=== PATIENT | male | born 1965 ===

== ENCOUNTER 2016-10-20 01:39 | Emergency (ER) | payer OTHER ==
[2016-10-20 04:04] LABS: RBC URINE 65 /hpf (0-3); URINE BACTERIA MANY (<OCC); URINE BILIRUBIN NEGATIVE (NEGATIVE); URINE BLOOD 2+ (NEGATIVE); URINE CALCIUM OXALATE CRYSTALS FEW /hpf (<OCC); URINE COLOR Yellow (YELLOW); URINE GLUCOSE (UA) NORMAL (Normal); URINE KETONE TRACE mg/dL (NEGATIVE); URINE LEUKOCYTE ESTERASE 3+ Leu/uL (Negative); URINE PROTEIN 2+ mg/dL (NEGATIVE); URINE UROBILINOGEN NORMAL mg/dL (0.2-1.0); WBC URINE 770 /hpf (0-5)
--- NOTE | 2016-10-20 04:56 | C.PDOC ---
History Of Present Illness Patient seen this morning due to painful urination for few days. Has seen urologist last monday. Time Seen by Provider: 10/20/16 04:56 Chief Complaint (Nursing): Male Genitourinary History Per: Patient History/Exam Limitations: no limitations Onset/Duration Of Symptoms: Days Current Symptoms Are (Timing): Still Present Severity: Moderate Pain Scale Rating Of: 5 Quality Of Discomfort: Burning Associated Symptoms: denies: Fever, Chills, Nausea, Vomiting Alleviating Factors: None Recent travel outside of the [place]: No Additional History Per: Patient Past Medical History Vital Signs: Last Vital Signs Temp 97.3 F L 10/20/16 02:40 Pulse 68 10/20/16 02:40 Resp 20 10/20/16 02:40 BP 167/99 H 10/20/16 02:40 Pulse Ox 95 10/20/16 05:08 - Medical History PMH: No Chronic Diseases Surgical History: No Surg Hx Family History: States: Unknown Family Hx - Social History Hx Alcohol Use: Yes Hx Substance Use: No - Immunization History Hx Tetanus Toxoid Vaccination: No Hx Influenza Vaccination: No Hx Pneumococcal Vaccination: No Review Of Systems Constitutional: Negative for: Fever, Chills, Sweats Cardiovascular: Negative for: Chest Pain, Palpitations, Orthopnea, Paroxysmal Noc. Dyspnea Respiratory: Negative for: Cough, Shortness of Breath, Hemoptysis Gastrointestinal: Negative for: Nausea, Vomiting, Abdominal Pain, Diarrhea Genitourinary: Positive for: Dysuria, Frequency, Penile Pain. Negative for: Hematuria, Penile Discharge Musculoskeletal: Negative for: Neck Pain, Shoulder Pain, Arm Pain Skin: Negative for: Rash Neurological: Negative for: Weakness, Numbness, Incoordination Physical Exam - Physical Exam Appears: Well, No Acute Distress Skin: Normal Color, Warm, Dry Eye(s): bilateral: Normal Inspection, PERRL, EOMI Nose: Normal Throat: Normal Neck: Normal Cardiovascular: Rhythm Regular Respiratory: Normal Breath Sounds Gastrointestinal/Abdominal: Normal Exam, Soft, No Tenderness, No Distention, No Guarding Back: Normal Inspection, No CVA Tenderness, No Vertebral Tenderness Male Genital: No Testicular Tenderness, No Testicular Swelling, No Inguinal Tenderness, No Inguinal Swelling, No Scrotal Swelling, Other (soft tissue swwelling of penile area, no disscharge) ED Course And Treatment - Laboratory Results Result Diagrams: 10/20/16 05:42 10/20/16 05:42 O2 Sat by Pulse Oximetry: 95 Disposition Counseled Patient/Family Regarding: Diagnosis - Disposition Referrals: [facility] [Outside] Papi Thomas Jr., MD [Staff Provider] - Disposition Time: 06:28 Condition: STABLE Prescriptions: Sulfamethoxazole/Trimethoprim [Bactrim DS 800 mg-160 mg] 1 tab PO BID #14 tab Phenazopyridine HCl [Pyridium] 200 mg PO TID #20 tablet Instructions: Urinary Tract Infection in Men (ED) - POA Present On Arrival: None - Clinical Impression Clinical Impression: UTI (urinary tract infection)
[2016-10-20 05:45] LABS: BASO # 0.1 K/uL (0.0-0.2); BASO % 0.7 % (0.0-2.0); EOS # 0.1 K/uL (0.0-0.7); EOS % 1.4 % (0.0-4.0); HEMATOCRIT 40.6 % (35.0-51.0); LYMPH # 1.3 K/uL (1.0-4.3); LYMPH % 14.1 % (20.0-40.0); MEAN CELL VOLUME 89.4 fL (80.0-94.0); MEAN CORPUSCULAR HEMOGLOBIN 30.6 pg (27.0-31.0); MEAN CORPUSCULAR HGB CONC 34.3 g/dL (33.0-37.0); MEAN PLATELET VOLUME 8.2 fL (7.2-11.7); MONO # 0.9 K/uL (0.0-0.8); MONO % 9.3 % (0.0-10.0); RED CELL DISTRIBUTION WIDTH 12.6 % (11.5-14.5); WHITE BLOOD COUNT 9.5 K/uL (4.8-10.8)
[2016-10-20 05:54] LABS: CHLORIDE 103 mmol/L (98-107); POTASSIUM 4.1 mmol/L (3.6-5.2); SODIUM 138 mmol/L (132-148)
[2016-10-20 05:56] LABS: GFR AFRICAN-AMERICAN > 60
[2016-10-20 05:57] LABS: ALKALINE PHOSPHATASE 124 U/L (38-126); ALT/SGPT 35 U/L (21-72); AST/SGOT 22 U/L (17-59); BILIRUBIN,TOTAL 0.7 mg/dL (0.2-1.3); BLOOD UREA NITROGEN 16 mg/dL (9-20); CALCIUM 8.6 mg/dl (8.6-10.4); CARBON DIOXIDE 23 mmol/L (22-30); GLUCOSE,RANDOM 103 mg/dL (75-110); TOTAL PROTEIN 7.2 g/dL (6.3-8.3)
[2016-10-20] MEDS ORDERED: Tmp-Smz 800 mg-160 mg DS Tab PO STA (06:31)
[2016-10-20 06:49] VITALS: BP 133/77; PULSE 77; RESP 16; TEMP 98.3; O2SAT 98
[2016-10-20] MEDS ORDERED: Tmp-Smz 800 mg-160 mg DS Tab ONE (06:52)
== END 2016-10-20 06:57 | disposition home or self-care (01) ==
LOC: C.ER 01:39
DX: N39.0 Urinary tract infection, site not specified (principal)
CPT/HCPCS: 80053; 81001; 85025; 87086; 96372; 99283; J1885

== ENCOUNTER 2016-10-29 22:29 | Emergency (ER) | payer OTHER ==
[2016-10-29] MEDS ORDERED: Sodium Chloride 0.9% 1,000 ML IV ONE (23:32)
[2016-10-29 23:41] LABS: VENOUS BLOOD GAS BASE EXCESS 0.3 mmol/L (0.0-2.0); VENOUS BLOOD GAS PCO2 33 mmHg (40-60); VENOUS BLOOD PH 7.46 (7.32-7.43)
[2016-10-29] MEDS ORDERED: Sodium Chloride 0.9% 1,000 ML ONE (23:45)
[2016-10-29 23:50] LABS: RBC URINE 10 /hpf (0-3); URINE BACTERIA MANY (<OCC); URINE BILIRUBIN NEGATIVE (NEGATIVE); URINE BLOOD NEGATIVE (NEGATIVE); URINE GLUCOSE (UA) NORMAL (Normal); URINE KETONE NEGATIVE (NEGATIVE); URINE PROTEIN 2+ mg/dL (NEGATIVE); WBC URINE 260 /hpf (0-5)
[2016-10-29 23:51] LABS: URINE COLOR ORANGE (YELLOW); URINE LEUKOCYTE ESTERASE 1+ Leu/uL (Negative)
[2016-10-29 23:55] LABS: BASO % 0.4 % (0.0-2.0); EOS # 0.1 K/uL (0.0-0.7); HEMATOCRIT 38.6 % (35.0-51.0); LYMPH # 0.6 K/uL (1.0-4.3); LYMPH % 10.1 % (20.0-40.0); MEAN CELL VOLUME 88.6 fL (80.0-94.0); MEAN CORPUSCULAR HGB CONC 33.9 g/dL (33.0-37.0); MEAN PLATELET VOLUME 8.5 fL (7.2-11.7); MONO # 0.1 K/uL (0.0-0.8); MONO % 1.2 % (0.0-10.0); NRBC % 0.2 % (0.0-2.0); RED CELL DISTRIBUTION WIDTH 12.5 % (11.5-14.5); WHITE BLOOD COUNT 5.8 K/uL (4.8-10.8)
[2016-10-30 00:15] LABS: INR 1.3
[2016-10-30 00:46] LABS: ALB/GLOB RATIO 1.2 (1.0-2.1); ALKALINE PHOSPHATASE 209 U/L (38-126); ALT/SGPT 112 U/L (21-72); AST/SGOT 150 U/L (17-59); BILIRUBIN,TOTAL 1.2 mg/dL (0.2-1.3); BLOOD UREA NITROGEN 18 mg/dL (9-20); CALCIUM 7.9 mg/dl (8.6-10.4); CARBON DIOXIDE 21 mmol/L (22-30); CHLORIDE 98 mmol/L (98-107); GFR AFRICAN-AMERICAN > 60; GLUCOSE,RANDOM 109 mg/dL (75-110); MAGNESIUM 1.6 mg/dL (1.6-2.3); PHOSPHOROUS 1.9 mg/dL (2.5-4.5); POTASSIUM 4.2 mmol/L (3.6-5.2); SODIUM 133 mmol/L (132-148); TOTAL PROTEIN 6.8 g/dL (6.3-8.3)
[2016-10-30] MEDS ORDERED: Iodixanol 320 MG/ML 100 ML BOTTLE IV ONE (00:52)
--- NOTE | 2016-10-30 01:51 | CT ---
EXAM: CT Abdomen and Pelvis With Intravenous Contrast CLINICAL HISTORY: 51 years old, male; Pain; Abdominal pain; Generalized; Additional info: Dysuria, fever, back pain, R/O pyeloneph TECHNIQUE: Axial computed tomography images of the abdomen and pelvis with intravenous contrast. This CT exam was performed using one or more of the following dose reduction techniques: automated exposure control, adjustment of the mA and/or kV according to patient size, and/or use of iterative reconstruction technique. Coronal and sagittal reformatted images were created and reviewed. CONTRAST: 100 mL of osmn613 administered intravenously. EXAM DATE/TIME: 10/29/2016 11:31 PM COMPARISON: CT - ABD PELVIS IV CONTRAST ONLY 08/06/2015 11:12:07 PM FINDINGS: Small stable left hepatic lobe cyst. The spleen is normal. The pancreas is normal. No gallstones. No hydronephrosis. Trace bilateral stable perinephric stranding. No striated nephrograms. Again seen is a right urinary bladder diverticuli. It measures 1.5 x 2 cm on the current compared to 1.1 x 1.5 cm on the prior. The urinary bladder wall is prominent, at least partially due to incomplete distention. Correlation with urinalysis could be performed to exclude infectious/inflammatory process. Left-sided colonic diverticulosis. The appendix is identified on axial images 43 through 58. It is again seen to be dilated with air and stool measuring 9-10 mm without evidence of wall thickening or surrounding inflammation. IMPRESSION: Increased size of right bladder diverticuli. Prominent urinary bladder wall as discussed above.
[2016-10-30] MEDS ORDERED: Ciprofloxacin 400mg/200ml D5W 200 ML IV STA (02:35)
--- NOTE | 2016-10-30 02:40 | C.PDOC ---
History Of Present Illness <Gayle Shepherd - Last Filed: 10/31/16 22:28> <Candido Abdullahi - Last Filed: 11/01/16 17:03> 51 year old male presents to the ED with complaints of dysuria and associated fever, chills for the last week, and two vomiting episodes yesterday prompting visit to the ED. He notes a history of uretheral stricture surgery "years ago." Patient denies diarrhea, numbness, weakness, or recent travel. (Gayle Shepherd) History Per: Patient History/Exam Limitations: no limitations Onset/Duration Of Symptoms: Days Current Symptoms Are (Timing): Still Present Associated Symptoms: Vomiting. denies: Fever, Chills, Diarrhea <Gayle Shepherd - Last Filed: 10/31/16 22:28> <Candido Abdullahi - Last Filed: 11/01/16 17:03> Time Seen by Provider: 10/29/16 23:19 Chief Complaint (Nursing): Fever Past Medical History Reviewed: Historical Data, Nursing Documentation, Vital Signs Family History: States: Unknown Family Hx - Social History Hx Alcohol Use: Yes Hx Substance Use: No - Immunization History Hx Tetanus Toxoid Vaccination: No Hx Influenza Vaccination: No Hx Pneumococcal Vaccination: No <Gayle Shepherd - Last Filed: 10/31/16 22:28> Vital Signs: Last Vital Signs Temp 98.5 F 10/30/16 05:09 Pulse 98 H 10/30/16 05:09 Resp 18 10/30/16 05:09 BP 102/64 10/30/16 05:09 Pulse Ox 98 10/31/16 22:29 Review Of Systems Constitutional: Positive for: Fever, Chills. Negative for: Sweats Gastrointestinal: Positive for: Vomiting. Negative for: Abdominal Pain, Diarrhea Genitourinary: Positive for: Dysuria Neurological: Negative for: Weakness, Numbness <Gayle Shepherd - Last Filed: 10/31/16 22:28> Physical Exam - Physical Exam Appears: Non-toxic, No Acute Distress Skin: Warm, Dry Head: Atraumatic, Normacephalic Eye(s): bilateral: PERRL, EOMI Ear(s): Bilateral: Normal Oral Mucosa: Dry Throat: Normal, No Erythema Neck: Normal ROM, Supple Cardiovascular: Rhythm Regular, No Friction Rub, No Murmur Respiratory: Normal Breath Sounds, No Accessory Muscle Use, No Rales, No Rhonchi , No Stridor, No Wheezing Gastrointestinal/Abdominal: Soft, No Tenderness, No Distention, No Guarding, No Rebound Back: Normal Inspection, No CVA Tenderness Extremity: Normal ROM, No Tenderness Neurological/Psych: Oriented x3, Normal Speech, Normal Motor Gait: Steady <Gayle Shepherd - Last Filed: 10/31/16 22:28> <Candido Abdullahi - Last Filed: 11/01/16 17:03> - Physical Exam Additional Physical Exam Comments: Mild tremors secondary to fever (Gayle Shepherd) ED Course And Treatment - Laboratory Results Result Diagrams: 10/29/16 23:40 10/30/16 00:05 O2 Sat by Pulse Oximetry: 98 (room air ) Pulse Ox Interpretation: Normal <Gayle Shepherd - Last Filed: 10/31/16 22:28> - Laboratory Results Result Diagrams: 10/29/16 23:40 10/30/16 00:05 <Candido Abdullahi - Last Filed: 11/01/16 17:03> Medical Decision Making <Gayle Shepherd - Last Filed: 10/31/16 22:28> <Candido Abdullahi - Last Filed: 11/01/16 17:03> Medical Decision Making: Old records reviewed, the patient was seen in the ED for similar symptoms on and was discharged home with Bactrim. It is likely that the UTI continues secondary to the possible resistance to the Bactrim. Antibiotic changed to Cipro. NS IVF given. On re-exam, the patient reports improvement of symptoms. Lungs are CTA, heart is RRR, abdomen is soft, non-tender and tolerating PO well. Follow up with the medical doctor within 1-2 days. Return if worsened. (Gayle Shepherd) Disposition - Disposition Disposition Time: 03:49 <Gayle Shepherd - Last Filed: 10/31/16 22:28> <Candido Abdullahi - Last Filed: 11/01/16 17:03> - Disposition Referrals: Papi Thomas Jr., MD [Staff Provider] - Disposition: HOME/ ROUTINE Condition: GOOD Additional Instructions: Follow up with the medical doctor within 1-2 days. Return if worsened. Prescriptions: Ciprofloxacin HCl [Cipro] 500 mg PO BID #19 tab Ibuprofen [Motrin] 600 mg PO TID #21 tab Instructions: Acute Pyelonephritis (DC) - Clinical Impression Clinical Impression: UTI (urinary tract infection), Pyelonephritis - Scribe Statement The provider has reviewed the documentation as recorded by the Scribe <Gayle Shepherd - Last Filed: 10/31/16 22:28> <Candido Abdullahi - Last Filed: 11/01/16 17:03> - Scribe Statement Yue Summers All medical record entries made by the Scribe were at my direction and personally dictated by me. I have reviewed the chart and agree that the record accurately reflects my personal performance of the history, physical exam, medical decision making, and the department course for this patient. I have also personally directed, reviewed, and agree with the discharge instructions and disposition. (Gayle Shepherd) Addendum <Gayle Shepherd - Last Filed: 10/31/16 22:28> <Candido Abdullahi - Last Filed: 11/01/16 17:03> Addendum: 11/01/16 17:00 I received urine culture result today. Shows resistant to cipro which patient was discharged on. Could not reach patient via phone, rings and no voicemail box. Called "person to notify" who gave me a different number but that number was someone else, wrong number. I referred this case to ED director for telegram. (Candido Abdullahi)
[2016-10-30] MEDS ORDERED: Ciprofloxacin 400mg/200ml D5W 200 ML IVPB ONE (02:41)
[2016-10-30 05:09] VITALS: BP 102/64; PULSE 98; RESP 18; TEMP 98.5
--- NOTE | 2016-10-30 07:59 | RAD ---
HISTORY: Sepsis Patient COMPARISON: No prior. FINDINGS: LUNGS: Chronic interstitial lung markings. Upper lobe granulomatous changes. No gross focal infiltrate or effusion. PLEURA: No significant pleural effusion identified, no pneumothorax apparent. CARDIOVASCULAR: Normal. OSSEOUS STRUCTURES: No significant abnormalities. VISUALIZED UPPER ABDOMEN: Normal. OTHER FINDINGS: None. IMPRESSION: No active disease.
[2016-10-31 22:29] VITALS: O2SAT 98
== END 2016-10-30 05:30 | disposition home or self-care (01) ==
LOC: C.ER 22:29
DX: N39.0 Urinary tract infection, site not specified (principal); N12 Tubulo-interstitial nephritis, not specified as acute or chronic
CPT/HCPCS: 71010; 74177; 80053; 81001; 82803; 83735; 84100; 85025; 85610; 85730; 87086; 87181; 96361; 96365; 99285; J0744; J7040; Q9967

== ENCOUNTER 2016-11-22 07:56 | Day surgery (SDC) | payer OTHER ==
[2016-11-07 08:28] VITALS: BMI 27.3
[~2016-11-22 07:56] MED LIST: Gentamicin 160 MG in Sodium Chloride 0.9% 100 ML IVPB ONE
[2016-11-22] MEDS ORDERED: Midazolam 2 MG/2 ML VIAL ONE (08:45)
[2016-11-22] MEDS ORDERED: Propofol 10 mg/ml Inj (20 ML) ONE ×4 (08:45→10:09)
[2016-11-22] MEDS ORDERED: Ciprofloxacin 400mg/200ml D5W 400 MG/200 ML BAG IVPB ONE (09:12)
[2016-11-22] MEDS ORDERED: Lidocaine 2% Jelly (Uro-Jet) ONE ×2 (09:12→09:32)
[2016-11-22] MEDS ORDERED: Iohexol 240 (50 ml) ONE (09:12)
--- NOTE | 2016-11-22 10:22 | PCM.SURG1 ---
Surgeon's Initial Post Op Note - Surgeon's Notes Surgeon: Martha Psychiatry Adult Physician: N/A Type of Anesthesia: General Mask Anesthesia Administered By: staff Pre-Operative Diagnosis: Urethral Stricture Operative Findings: same Post-Operative Diagnosis: same Operation Performed: Cysto/oiu/Ballon dilation Specimen/Specimens Removed: na Estimated Blood Loss: EBL {In ML}: 0 Blood Products Given: N/A Drains Used: No Drains Post-Op Condition: Good Date of Surgery/Procedure: 11/22/16 Time of Surgery/Procedure: 10:22
[2016-11-22] MEDS ORDERED: Lactated Ringer's 1,000 ML IV SCH (10:30)
[2016-11-22 10:59] VITALS: O2SAT 100
[2016-11-22] MEDS ORDERED: HYDROmorphone 0.5 mg/0.5 ml ISec IVP ONE (11:08)
--- NOTE | 2016-11-22 12:25 | OP ---
PROCEDURE DATE: 11/22/2016 PREOPERATIVE DIAGNOSIS: Urethral stricture. POSTOPERATIVE DIAGNOSIS: Urethral stricture. FINDINGS: Mid pendulous urethral stricture and a meatal stricture. PROCEDURE: The patient was draped and prepped in the usual manner after he signed a detailed informe d consent. He is aware of the limitations of this procedure and the possibility of urethral injury a nd recurrent urethral stricture. He was willing to accept these and all the risks, and was brought i [facility] the room, and a time-out was taken according to the rules and regulations of [facility]. Attempt was made to cystoscope the patient with a 21 Storz panendoscope. There was a meatal strictur e. This was dilated with Abdullahi sounds. The scope was then passed into the mid urethra. There wa s a second urethral stricture. This stricture was cannulized with a 0.038 sensor tipped guidewire, a nd a 30-Ukrainian balloon catheter was passed over this. It was dilated appropriately. The scope was b acked out. The residual fibers were cut with the OIU instrument, and then the OIU instrument was pas sed into the posterior urethra. The prostatic urethra was normal with minimal hypertrophy. The blad ryan was entered atraumatically. There were no urothelial tumors or stones. Based on these findings, the patient should void well now. The scope was backed out, leaving the paul dewire in place, and a #18 [place] catheter was passed over the guidewire and positioned properly. The patient tolerated this procedure well. He will be given prescriptions for pain and antibiotics, and will follow up in our office tomorrow for catheter removal. Papi Thomas MD cc: [phone] TT: 11/22/2016 12:24:39 jl
[2016-11-22 12:46] VITALS: BP 131/88; PULSE 61; RESP 18; TEMP 97
--- NOTE | 2016-11-22 17:15 | RAD ---
PROCEDURE: Procedure HISTORY: URETHRAL STRICTURE COMPARISON: None TECHNIQUE: Urethral dilatation FINDINGS: Multiple images showing insertion of a guidewire and subsequent balloon like dilatation of the urethrain this patient with a history of urethral stricture. No extravasation of contrast. IMPRESSION: Images regarding procedural Urethral dilatation.
== END 2016-11-22 12:47 | disposition home or self-care (01) ==
LOC: C.SDS 07:56
PROVIDERS: ATTEND Urology
DX: N35.9 Urethral stricture, unspecified (principal)
CPT/HCPCS: 52281; C1769; J0744; J1170; J1580; Q9966

== ENCOUNTER 2017-09-04 12:24 | Day surgery (SDC) | payer OTHER ==
[2016-11-07 08:26] VITALS: BMI 27.3
[2017-09-04] MEDS ORDERED: Propofol 10 mg/ml Inj (20 ML) ONE (15:33)
[2017-09-04] MEDS ORDERED: ceFAZolin IV 2 gm in Dextrose 2 GM/50 ML BAG IVPB ONE (15:38)
[2017-09-04] MEDS ORDERED: Bupivacaine HCl 0.5% PF (10 ml) Inj ONE (15:38)
[2017-09-04] MEDS ORDERED: Lidocaine 1% Inj (20ml) ONE (15:38)
[2017-09-04] MEDS ORDERED: HYDROmorphone 0.5 mg/0.5 ml ISec IVP PRN (16:32)
--- NOTE | 2017-09-04 16:34 | PCM.SURG1 ---
Surgeon's Initial Post Op Note - Surgeon's Notes Surgeon: SARAH Green Chain Puller: MADDY Type of Anesthesia: General LMA Anesthesia Administered By: STAFF Pre-Operative Diagnosis: PHIMOSIS/BALANITIS Operative Findings: SAME Post-Operative Diagnosis: SAME Operation Performed: CIRCUMCISION Specimen/Specimens Removed: FORESKIN Estimated Blood Loss: EBL {In ML}: 0 Blood Products Given: N/A Drains Used: No Drains Post-Op Condition: Good Date of Surgery/Procedure: 09/04/17 Time of Surgery/Procedure: 16:34
[2017-09-04 17:49] VITALS: BP 130/70; PULSE 81; RESP 18; TEMP 98; O2SAT 100
--- NOTE | 2017-09-05 03:19 | OP ---
PROCEDURE DATE: 09/04/2017 PREOPERATIVE DIAGNOSIS: Phimosis and balanitis. POSTOPERATIVE DIAGNOSIS: Phimosis and balanitis. PROCEDURE: Circumcision. DESCRIPTION OF PROCEDURE: The procedure is as follows. Prior to the procedure, detailed informed consent was obtained from the patient . He was aware of the risk and complications of circumcision and all the ways of managing phimosis with balanitis. The patient consented to these risks and agreed to proceed with the procedure. He was brought into the room and a timeout was taken according to rules and regulations of [facility]. Patient received prophylactic Ancef and then was draped and prepped in usual manner. The foreskin was prepped and draped in the usual manner. It could not be retracted. Once the patient was asleep, it was forcibly retracted, and the interior was draped and prepped. It was pulled down again, and the area of incision was marked on both interior and exterior of the foreskin. There was significant amount of inflammation. The knife was used to make a circumferential incision in the marked area and care was taken to fashion the incision around the frenulum. The skin was then pulled back and a second incision was made just proximal to the glans penis and the frenulum was incised. The two incisions were then connected using blunt and sharp dissection in the Bovie, thereby amputating the foreskin in a Sleeve fashion. The cut edges were inspected for bleeding of all bleeding vessels that were fulgurated until meticulous hemostasis was achieved. 3-0 Chromic suture was used to reconstitute the skin in a circumferential fashion. U-stitch was used for the frenulum. The patient tolerated the procedure well. A circumferential anesthetizing of the skin was carried out with Marcaine, Xylocaine solution, and a dry sterile dressing was placed. The patient tolerated this procedure well and sent to the recovery room in good condition. Papi Thomas MD
== END 2017-09-04 17:53 | disposition home or self-care (01) ==
LOC: C.SDS 12:24
PROVIDERS: ATTEND Urology
DX: N47.1 Phimosis (principal); N48.1 Balanitis; F17.200 Nicotine dependence, unspecified, uncomplicated
CPT/HCPCS: 54161; 88304; J0690; J1885; J2405; J2704; J3010

== ENCOUNTER 2018-01-16 12:53 | Inpatient (IN) | payer MEDICAID, OTHER ==
[2018-01-16 13:08] VITALS: BMI 28.5
[2018-01-16] MEDS ORDERED: Sodium Chloride 0.9% 1,000 ML IV STA (14:22)
[2018-01-16] MEDS ORDERED: Sodium Chloride 0.9% 1,000 ML ONE (14:37)
[2018-01-16 14:53] LABS: BASO # 0.1 K/uL (0.0-0.2); BASO % 0.5 % (0.0-2.0); EOS # 0.2 K/uL (0.0-0.7); EOS % 1.2 % (0.0-4.0); HEMOGLOBIN 12.6 g/dL (12.0-18.0); LYMPH # 1.1 K/uL (1.0-4.3); LYMPH % 7.3 % (20.0-40.0); MEAN CELL VOLUME 83.5 fL (80.0-94.0); MEAN CORPUSCULAR HEMOGLOBIN 28.6 pg (27.0-31.0); MEAN CORPUSCULAR HGB CONC 34.3 g/dL (33.0-37.0); MEAN PLATELET VOLUME 7.8 fL (7.2-11.7); MONO # 1.1 K/uL (0.0-0.8); PLATELET COUNT 351 K/uL (130-400); RBC 4.41 Mil/uL (4.40-5.90); WHITE BLOOD COUNT 15.4 K/uL (4.8-10.8)
[2018-01-16 15:03] LABS: VENOUS BLOOD GAS BASE EXCESS 1.1 mmol/L (0.0-2.0); VENOUS BLOOD GAS PCO2 37 mmHg (40-60); VENOUS BLOOD GAS PO2 33 mm/Hg (30-55); VENOUS BLOOD PH 7.44 (7.32-7.43)
[2018-01-16 15:11] LABS: ALB/GLOB RATIO 1.1 (1.0-2.1); ALT/SGPT 27 U/L (21-72); AST/SGOT 25 U/L (17-59); BLOOD UREA NITROGEN 13 mg/dL (9-20); CALCIUM 8.8 mg/dl (8.6-10.4); GFR AFRICAN-AMERICAN > 60; GFR NON-AFRICAN AMERICAN > 60
[2018-01-16 15:35] LABS: EOSINOPHIL 2 % (0-4); LYMPHOCYTE 8 % (20-40); MONOCYTE 7 % (0-10); NEUTROPHIL 83 % (50-75); PLATELET ESTIMATE NORMAL (NORMAL); TOTAL CELLS COUNTED 100
[2018-01-16 15:58] LABS: SQUAMOUS EPITHIAL 1 /hpf (0-5); URINE BACTERIA OCC (<OCC); URINE BILIRUBIN NEGATIVE (NEGATIVE); URINE BLOOD NEGATIVE (NEGATIVE); URINE CLARITY Hazy (Clear); URINE COLOR Yellow (YELLOW); URINE GLUCOSE (UA) NORMAL (Normal); URINE LEUKOCYTE ESTERASE 2+ Leu/uL (Negative); URINE PROTEIN NEGATIVE (NEGATIVE); URINE UROBILINOGEN NORMAL mg/dL (0.2-1.0)
[2018-01-16] MEDS ORDERED: Piperacillin/Tazobact 3.375 gm 100 ML IVPB STA (16:11)
--- NOTE | 2018-01-16 16:16 | C.PDOC ---
Time Seen by Provider: 01/16/18 14:04 Chief Complaint (Nursing): Male Genitourinary History Per: Patient Onset/Duration Of Symptoms: Days Current Symptoms Are (Timing): Still Present Severity: Moderate Quality Of Discomfort: Unable To Describe Associated Symptoms: Fever, Urinary Symptoms Alleviating Factors: None Additional History Per: Prior Records Past Medical History Reviewed: Historical Data, Nursing Documentation, Vital Signs Vital Signs: Last Vital Signs Temp 103 F H 01/16/18 13:08 Pulse 115 H 01/16/18 13:08 Resp 20 01/16/18 13:08 BP 119/75 01/16/18 13:08 Pulse Ox 98 01/16/18 13:08 - Medical History PMH: Fractures (CLAVICLE/CHILDHOOD) Other PMH: Urethral stricture Surgical History: No Surg Hx Family History: States: Unknown Family Hx - Social History Hx Alcohol Use: Yes Hx Substance Use: No - Immunization History Hx Tetanus Toxoid Vaccination: No Hx Influenza Vaccination: No Hx Pneumococcal Vaccination: No Review Of Systems Except As Marked, All Systems Reviewed And Found Negative. Constitutional: Positive for: Fever, Chills, Malaise Cardiovascular: Negative for: Chest Pain Respiratory: Negative for: Shortness of Breath Gastrointestinal: Negative for: Vomiting, Abdominal Pain, Diarrhea Genitourinary: Positive for: Dysuria, Other (Pt decribes pain in his perineum) Musculoskeletal: Negative for: Neck Pain, Back Pain Neurological: Negative for: Weakness, Numbness Physical Exam - Physical Exam Appears: Non-toxic, No Acute Distress Skin: Normal Color, Warm, Dry Head: Atraumatic, Normacephalic Eye(s): bilateral: PERRL, EOMI Neck: Normal ROM, Supple Cardiovascular: Rhythm Regular Respiratory: Normal Breath Sounds, No Accessory Muscle Use Gastrointestinal/Abdominal: Soft, No Tenderness Back: No CVA Tenderness Male Genital: No Testicular Tenderness, No Testicular Swelling, Circumcised Extremity: Normal ROM Neurological/Psych: Oriented x3, Normal Motor, Normal Sensation ED Course And Treatment - Laboratory Results Result Diagrams: 01/16/18 14:48 01/16/18 14:48 Lab Interpretation: Abnormal Interpretation Of Abnormal: UTI. Leukocytosis with left shift. O2 Sat by Pulse Oximetry: 98 Pulse Ox Interpretation: Normal - Radiology CXR: Interpreted by Me, Viewed By Me CXR Interpretation: Yes: No Acute Disease Progress - Interventions Interventions:: Observation, Intravenous fluid - Medications Administered Intravenous: Other (Abx) - Data Reviewed Data Reviewed: Lab, Diagnostic imaging, Old records - Patient Status Patient status: Partially improved - Continuity of Care Discussed patient case with:: Patient, ED Nurse, On-call PMD-pt unassigned - Patient Plan Patient Plan: Admission Medical Decision Making Medical Decision Making: Pt's last urine culture grew E. Coli that was ESBL positive. Disposition Discussed With : Nasra Dangelo Comment: She accepted pt on hospitalist service. Doctor Will See Patient In The: Hospital Counseled Patient/Family Regarding: Studies Performed, Diagnosis - Disposition Disposition: HOSPITALIZED Disposition Time: 16:17 Condition: GUARDED - Clinical Impression Clinical Impression: Complicated urinary tract infection, Sepsis, Fever
--- NOTE | 2018-01-16 16:35 | RAD ---
HISTORY: Fever. COMPARISON: 11/07/2016 FINDINGS: LUNGS: No active pulmonary disease. PLEURA: No significant pleural effusion identified, no pneumothorax apparent. CARDIOVASCULAR: No radiographic findings to suggest acute or significant cardiovascular disease. OSSEOUS STRUCTURES: No significant abnormalities. VISUALIZED UPPER ABDOMEN: Normal. OTHER FINDINGS: None. IMPRESSION: No active disease.
[2018-01-16] MEDS ORDERED: Meropenem 1 GM in Sodium Chloride 0.9% 100 ML IVPB ONE (17:19)
[2018-01-16] MEDS ORDERED: Piperacillin/Tazobact 3.375 gm 100 ML IVPB ONE (17:23)
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
[2018-01-16] MEDS ORDERED: Enoxaparin 40 mg Syringe ONE (19:32)
[2018-01-16] MEDS: Enoxaparin 40 mg Syringe SC SCH (19:35)
[2018-01-17 06:17] LABS: BASO # 0.1 K/uL (0.0-0.2); BASO % 0.9 % (0.0-2.0); EOS # 0.6 K/uL (0.0-0.7); EOS % 7.9 % (0.0-4.0); HEMOGLOBIN 12.4 g/dL (12.0-18.0); LYMPH % 38.2 % (20.0-40.0); MEAN CELL VOLUME 84.2 fL (80.0-94.0); MEAN CORPUSCULAR HEMOGLOBIN 28.5 pg (27.0-31.0); MEAN CORPUSCULAR HGB CONC 33.8 g/dL (33.0-37.0); MEAN PLATELET VOLUME 8.1 fL (7.2-11.7); MONO % 12.4 % (0.0-10.0); NEUT # 3.2 K/uL (1.8-7.0); NEUT % 40.6 % (50.0-75.0); RBC 4.35 Mil/uL (4.40-5.90); RED CELL DISTRIBUTION WIDTH 12.7 % (11.5-14.5); WHITE BLOOD COUNT 7.8 K/uL (4.8-10.8)
[2018-01-17 06:34] LABS: ALBUMIN 3.6 g/dL (3.5-5.0); ALT/SGPT 27 U/L (21-72); AST/SGOT 25 U/L (17-59); BLOOD UREA NITROGEN 11 mg/dL (9-20); CALCIUM 8.7 mg/dl (8.6-10.4); GFR AFRICAN-AMERICAN > 60; GFR NON-AFRICAN AMERICAN > 60
[2018-01-17] MEDS: Enoxaparin 40 mg Syringe SC SCH (10:02)
--- NOTE | 2018-01-17 10:43 | CP.PCM.PN ---
Subjective - Date & Time of Evaluation Date of Evaluation: 01/17/18 Time of Evaluation: 07:00 - Subjective Subjective: PGY2- Progress Note for Dr. De Santiago Patient seen and examined at bedside and in no acute distress. Patient says he is feeling much better. Patient says he still has burning and pain with urination and his urine is slightly darker than normal. Patient denies any fevers, headache, shortness of breath, abdominal pain, nausea, vomiting, constipation, or diarrhea. Objective - Vital Signs/Intake and Output Vital Signs (last 24 hours): Temp Pulse Resp BP Pulse Ox 97.7 F 58 L 20 131/82 96 01/17/18 08:08 01/17/18 08:08 01/17/18 08:08 01/17/18 08:08 01/17/18 08:08 Intake and Output: 01/17/18 01/17/18 06:59 18:59 Intake Total 240 Balance 240 - Medications Medications: Current Medications Acetaminophen (Tylenol 325mg Tab) 650 mg PO Q6 PRN PRN Reason: Fever >100.4 F Enoxaparin Sodium (Lovenox) 40 mg SC DAILY [facility] Last Admin: 01/16/18 19:35 Dose: 40 mg Pneumococcal Polyvalent Vaccine (Pneumovax 23 Vaccine) 0.5 ml SC .ONCE ONE Stop: 01/19/18 10:01 - Labs Labs: 01/17/18 06:09 01/17/18 06:09 - Additional Findings Additional findings: - Constitutional Appears: Non-toxic, No Acute Distress - Head Exam Head Exam: ATRAUMATIC, NORMOCEPHALIC - Eye Exam Eye Exam: EOMI - ENT Exam ENT Exam: Mucous Membranes Moist - Respiratory Exam Respiratory Exam: Clear to Auscultation Bilateral, NORMAL BREATHING PATTERN - Cardiovascular Exam Cardiovascular Exam: +S1, +S2 - GI/Abdominal Exam GI & Abdominal Exam: Normal Bowel Sounds, Soft. absent: Tenderness - Exam Exam: Circumcision, Scrotal Swelling, Testicular Tenderness (right testicle) . absent: Uretheral Discharge - Extremities Exam Extremities exam: Positive for: normal inspection. Negative for: pedal edema - Back Exam Back exam: NORMAL INSPECTION. absent: CVA tenderness (L), CVA tenderness (R) - Neurological Exam Neurological exam: Alert - Psychiatric Exam Psychiatric exam: Normal Affect - Skin Skin Exam: Warm Assessment and Plan - Assessment and Plan (Free Text) Assessment: Urinary Tract infection patient has failed outpatient PO antibiotics call placed to patient's urologist, Dr. Thomas- does not need consult at this time patient has history ESBL UTI in 10/2016 no CVA tenderness/ flank pain renal/ urinary bladder ultrasound: mild fullness versus mild hydronephrosis of the left renal collecting system 3.1 cm right sided urinary bladder diverticulum noted. 225cc postvoid residual in the urinary bladder which may represent a bladder outlet obstruction. Thickening of the urinary bladder wall which may represent an underlying cystitis. leukocytosis 15.4 on admission, Tmax 103, HR 115, lactate 0.9 urine culture and blood culture collected patient given one dose zosyn in ER patient given one dose meropenem on 01/17, ID restricted drug continue Meropenem 500mg ivpb q8h Florastor 250mg po BID -ID, Dr. Robles consulted, help appreciated tylenol 650mg prn fever Testicular swelling no hernia appreciated on examination testicular ultrasound: diffuse heterogeneous echotexture in the right testicle with normal flow. findings could be related to nonspecific infection/ inflammation. no evidence for mass or torsion, 4mm simple cyst in the head of the right epididymis, normal sonographic appearance of the left testicle and epididymis with normal flow Prophylactic measure SCDs no GI prophylaxis indicated at this time ESBL contact precaution
--- NOTE | 2018-01-17 11:09 | US ---
HISTORY: testicular swelling, pain TECHNIQUE: Realtime sonography through the scrotum with color and doppler flow. COMPARISON: None Available. FINDINGS: RIGHT TESTICLE: Measures 4.2 x 1.7 x 2.9 cm. There is diffuse heterogeneous echotexture with normal flow. RIGHT EPIDIDYMIS: Epididymal head measures 0.9 x 0.7 x 0.8 cm. There is a 4 mm cyst in the tail of the epididymis, otherwise grossly normal with normal flow. LEFT TESTICLE: Measures 3.7 x 1.6 x 2.7 cm. There is homogeneous echotexture with normal flow. LEFT EPIDIDYMIS: Epididymal head measures 0.8 x 1.1 x 1.3 cm. Grossly unremarkable appearance with normal flow. HYDROCELE: None. VARICOCELE: None. OTHER FINDINGS: None. IMPRESSION: 1. Diffuse heterogeneous echotexture in the right testicle with normal flow. Findings could be related to nonspecific infection/ inflammation. No evidence for mass or torsion. 2. 4 mm simple cyst in the head of the right epididymis. 3. Normal sonographic appearance of the left testicle and epididymis with normal flow.
--- NOTE | 2018-01-17 13:03 | US ---
Renal and urinary bladder ultrasound History: Hydronephrosis. Comparison: None available. Technique: Real-time sonography was performed through the kidneys and urinary bladder. Findings: Right kidney: 10.3 x 4.7 x 5.1 centimeters. No calculi or hydronephrosis. Left Kidney: 10.5 x 6.2 x 5.2 centimeters. No gross calculi. Mild fullness versus mild hydronephrosis of the left renal collecting system. Visualized aorta is preserved. Evaluation of the urinary bladder demonstrates a right-sided urinary bladder diverticulum measuring 3.1 x 2.6 x 2.2 centimeters. Prevoid bladder volume of 411 cc. Postvoid residual of 225 cc. Heterogeneous and prominent prostate with internal calcifications measuring 4.8 x 3.9 x 4.6 centimeters. Suggestion of some mild urinary bladder wall thickening. No gross bladder calculi. Bilateral ureteral jets were visualized. Impression: Mild fullness versus mild hydronephrosis of the left renal collecting system. 3.1 centimeter right-sided urinary bladder diverticulum noted. 225 cc postvoid residual in the urinary bladder which may represent a bladder outlet obstruction. Clinical correlation. Thickening of the urinary bladder wall which may represent an underlying cystitis. Clinical correlation.
--- NOTE | 2018-01-17 14:33 | CP.PCM.PN ---
Subjective - Date & Time of Evaluation Date of Evaluation: 01/17/18 Time of Evaluation: 02:15 Objective - Vital Signs/Intake and Output Vital Signs (last 24 hours): Temp Pulse Resp BP Pulse Ox 97.7 F 58 L 20 131/82 96 01/17/18 08:08 01/17/18 08:08 01/17/18 08:08 01/17/18 08:08 01/17/18 08:08 Intake and Output: 01/17/18 01/17/18 06:59 18:59 Intake Total 240 Balance 240 - Medications Medications: Current Medications Acetaminophen (Tylenol 325mg Tab) 650 mg PO Q6 PRN PRN Reason: Fever >100.4 F Enoxaparin Sodium (Lovenox) 40 mg SC DAILY [facility] Last Admin: 01/17/18 10:02 Dose: 40 mg Meropenem 500 mg/ Sodium (Chloride) 100 mls @ 100 mls/hr IVPB Q8H NATO PRN Reason: Protocol Pneumococcal Polyvalent Vaccine (Pneumovax 23 Vaccine) 0.5 ml SC .ONCE ONE Stop: 01/19/18 10:01 Saccharomyces Boulardii (Florastor) 250 mg PO BID NATO Tamsulosin HCl (Flomax) 0.4 mg PO DAILY NATO - Labs Labs: 01/17/18 06:09 01/17/18 06:09
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
[2018-01-17] MEDS: Meropenem 500 MG in Sodium Chloride 0.9% 100 ML IVPB SCH (16:32)
[2018-01-17] MEDS: Saccharomyces Boulardi 250 mg Cap PO SCH (17:58)
[2018-01-18] MEDS: Meropenem 500 MG in Sodium Chloride 0.9% 100 ML IVPB SCH ×3 (00:30→16:33)
[2018-01-18 07:46] LABS: BASO # 0.1 K/uL (0.0-0.2); EOS # 0.6 K/uL (0.0-0.7); EOS % 10.2 % (0.0-4.0); LYMPH # 2.6 K/uL (1.0-4.3); LYMPH % 45.9 % (20.0-40.0); MEAN CELL VOLUME 83.9 fL (80.0-94.0); MEAN CORPUSCULAR HEMOGLOBIN 28.5 pg (27.0-31.0); MEAN PLATELET VOLUME 8.1 fL (7.2-11.7); MONO # 0.6 K/uL (0.0-0.8); NEUT # 1.8 K/uL (1.8-7.0); NEUT % 31.9 % (50.0-75.0); NRBC % 0.1 % (0.0-2.0); RBC 4.56 Mil/uL (4.40-5.90); RED CELL DISTRIBUTION WIDTH 12.8 % (11.5-14.5); WHITE BLOOD COUNT 5.7 K/uL (4.8-10.8)
[2018-01-18 08:14] LABS: ALB/GLOB RATIO 1.1 (1.0-2.1); ALBUMIN 3.8 g/dL (3.5-5.0); ALT/SGPT 20 U/L (21-72); AST/SGOT 20 U/L (17-59); BLOOD UREA NITROGEN 10 mg/dL (9-20); CALCIUM 9.2 mg/dl (8.6-10.4); GFR AFRICAN-AMERICAN > 60; GFR NON-AFRICAN AMERICAN > 60
--- NOTE | 2018-01-18 08:57 | CP.PCM.PN ---
<Nicole Khan - Last Filed: 01/18/18 16:42> Subjective - Date & Time of Evaluation Date of Evaluation: 01/18/18 Time of Evaluation: 07:00 - Subjective Subjective: PGY- [address] De Santiago Patient seen and examined at bedside and in no acute distress. Patient says he is feeling much better. Patient says he isn't having much pain with urination, but it is hard for him to initiate urinating. Patient denies any fevers, chest pain, abdominal pain, nausea, vomiting, constipation, or diarrhea. Objective - Vital Signs/Intake and Output Vital Signs (last 24 hours): Temp Pulse Resp BP Pulse Ox 97.6 F 66 20 135/76 99 01/18/18 08:12 01/18/18 08:12 01/18/18 08:12 01/18/18 08:12 01/18/18 08:12 Intake and Output: 01/18/18 01/18/18 06:59 18:59 Intake Total 740 Balance 740 - Medications Medications: Current Medications Acetaminophen (Tylenol 325mg Tab) 650 mg PO Q6 PRN PRN Reason: Fever >100.4 F Enoxaparin Sodium (Lovenox) 40 mg SC DAILY [facility] Last Admin: 01/17/18 10:02 Dose: 40 mg Meropenem 500 mg/ Sodium (Chloride) 100 mls @ 100 mls/hr IVPB Q8H [facility] PRN Reason: Protocol Last Admin: 01/18/18 08:12 Dose: 100 mls/hr Pneumococcal Polyvalent Vaccine (Pneumovax 23 Vaccine) 0.5 ml SC .ONCE ONE Stop: 01/19/18 10:01 Saccharomyces Boulardii (Florastor) 250 mg PO BID [facility] Last Admin: 01/17/18 17:58 Dose: 250 mg Tamsulosin HCl (Flomax) 0.4 mg PO DAILY [facility] Last Admin: 01/17/18 14:54 Dose: 0.4 mg - Labs Labs: 01/18/18 07:32 01/18/18 07:32 - Additional Findings Additional findings: - Constitutional Appears: Non-toxic, No Acute Distress - Head Exam Head Exam: ATRAUMATIC, NORMOCEPHALIC - Eye Exam Eye Exam: EOMI - ENT Exam ENT Exam: Mucous Membranes Moist - Respiratory Exam Respiratory Exam: Clear to Auscultation Bilateral, NORMAL BREATHING PATTERN - Cardiovascular Exam Cardiovascular Exam: +S1, +S2 - GI/Abdominal Exam GI & Abdominal Exam: Normal Bowel Sounds, Soft. absent: Tenderness - Exam Exam: Circumcision, Scrotal Swelling, Testicular Tenderness (right testicle) . absent: Uretheral Discharge - Extremities Exam Extremities exam: Positive for: normal inspection. Negative for: pedal edema - Back Exam Back exam: NORMAL INSPECTION. absent: CVA tenderness (L), CVA tenderness (R) - Neurological Exam Neurological exam: Alert - Psychiatric Exam Psychiatric exam: Normal Affect - Skin Skin Exam: Warm Assessment and Plan - Assessment and Plan (Free Text) Assessment: Urinary Tract infection ESBL + patient has failed outpatient PO antibiotics patient has history ESBL UTI in 10/2016 no CVA tenderness/ flank pain renal/ urinary bladder ultrasound: mild fullness versus mild hydronephrosis of the left renal collecting system 3.1 cm right sided urinary bladder diverticulum noted. 225cc postvoid residual in the urinary bladder which may represent a bladder outlet obstruction. Thickening of the urinary bladder wall which may represent an underlying cystitis. Urology, Dr. Thomas consulted, help appreciated leukocytosis 15.4 on admission, Tmax 103, HR 115, lactate 0.9 urine culture and blood culture collected patient given one dose zosyn in ER patient given one dose meropenem on 01/17, ID restricted drug continue Meropenem 500mg ivpb q8h Florastor 250mg po BID -ID, Dr. Robles consulted, help appreciated tylenol 650mg prn fever Testicular swelling no hernia appreciated on examination testicular ultrasound: diffuse heterogeneous echotexture in the right testicle with normal flow. findings could be related to nonspecific infection/ inflammation. no evidence for mass or torsion, 4mm simple cyst in the head of the right epididymis, normal sonographic appearance of the left testicle and epididymis with normal flow Enlarged Prostate prostate measuring 4.8 x 3.9 x 4.6cm Urology, Dr. Valentine consulted, help appreciated Flomax .4mg po daily Prophylactic measure SCDs no GI prophylaxis indicated at this time ESBL contact precaution <Geovanni De Santiago - Last Filed: 01/18/18 22:56> Objective - Vital Signs/Intake and Output Vital Signs (last 24 hours): Temp Pulse Resp BP Pulse Ox 97.5 F L 60 18 141/87 98 01/18/18 20:40 01/18/18 20:40 01/18/18 20:40 01/18/18 20:40 01/18/18 20:40 Intake and Output: 01/18/18 01/19/18 18:59 06:59 Intake Total 600 Balance 600 - Medications Medications: Current Medications Acetaminophen (Tylenol 325mg Tab) 650 mg PO Q6 PRN PRN Reason: Fever >100.4 F Enoxaparin Sodium (Lovenox) 40 mg SC DAILY [facility] Last Admin: 01/18/18 09:56 Dose: 40 mg Gentamicin Sulfate 80 mg/ (Sodium Chloride) 102 mls @ 102 mls/hr IVPB Q8H [facility] PRN Reason: Protocol Stop: 01/23/18 20:00 Last Admin: 01/18/18 20:14 Dose: 102 mls/hr Tigecycline 50 mg/ Sodium (Chloride) 100 mls @ 100 mls/hr IVPB Q12H [facility] PRN Reason: Protocol Pneumococcal Polyvalent Vaccine (Pneumovax 23 Vaccine) 0.5 ml SC .ONCE ONE Stop: 01/19/18 10:01 Saccharomyces Boulardii (Florastor) 250 mg PO BID [facility] Last Admin: 01/18/18 17:41 Dose: 250 mg Tamsulosin HCl (Flomax) 0.4 mg PO DAILY [facility] Last Admin: 01/18/18 09:56 Dose: 0.4 mg - Labs Labs: 01/18/18 07:32 01/18/18 07:32 Attending/Attestation - Attestation I have personally seen and examined this patient.: Yes I have fully participated in the care of the patient.: Yes I have reviewed all pertinent clinical information, including history, physical exam and plan: Yes Notes (Text): 01/18/18 22:48 Patient was seen and examined at 6:30 PM. Exam, assessment and plan were gone over with resident Dr. Louann Khan. Reviewed sensitivities to Urine Culture showing ESBL. Based upon weight I have started Gentamicin 80 mg IV Q8H for 5 days (stop date and time order placed). Follow up Gentamicin Trough 30 minutes before 4th dose (7:30 PM 01/19/18) with goal Trough < 1. Tigecycline 75 mg IV x 1 dose tonight at 10 PM then 50 mg IV Q12H starting 6/29/ 18. Pelvis MRI with and without gadolinium ordered to help rule out Prostatitis ( Acute vs Chronic) as this may be contributing to his urinary retention and thus recurrent ESBL UTI. Medicine Team: Please make sure to ask patient about any tinnitus or hearing loss/abnormality considering he was started on Gentamicin. Geovanni De Santiago D.O.
[2018-01-18] MEDS: Enoxaparin 40 mg Syringe SC SCH (09:56)
[2018-01-18] MEDS: Saccharomyces Boulardi 250 mg Cap PO SCH ×2 (09:56→17:41)
--- NOTE | 2018-01-18 19:00 | CP.PCM.PN ---
Subjective - Date & Time of Evaluation Date of Evaluation: 01/18/18 Time of Evaluation: 09:00 - Subjective Subjective: improving has MDRO in urine genta and tygacil added in order to assess whether a deep seated source is present will need imaging and eval Objective - Vital Signs/Intake and Output Vital Signs (last 24 hours): Temp Pulse Resp BP Pulse Ox 97.7 F 69 20 119/76 99 01/18/18 15:30 01/18/18 15:30 01/18/18 15:30 01/18/18 15:30 01/18/18 15:30 Intake and Output: 01/18/18 01/18/18 06:59 18:59 Intake Total 740 600 Balance 740 600 - Medications Medications: Current Medications Acetaminophen (Tylenol 325mg Tab) 650 mg PO Q6 PRN PRN Reason: Fever >100.4 F Enoxaparin Sodium (Lovenox) 40 mg SC DAILY [facility] Last Admin: 01/18/18 09:56 Dose: 40 mg Gentamicin Sulfate 80 mg/ (Sodium Chloride) 102 mls @ 102 mls/hr IVPB Q8H [facility] PRN Reason: Protocol Stop: 01/23/18 20:00 Tigecycline 75 mg/ Sodium (Chloride) 100 mls @ 100 mls/hr IVPB ONCE ONE PRN Reason: Protocol Stop: 01/18/18 22:59 Pneumococcal Polyvalent Vaccine (Pneumovax 23 Vaccine) 0.5 ml SC .ONCE ONE Stop: 01/19/18 10:01 Saccharomyces Boulardii (Florastor) 250 mg PO BID [facility] Last Admin: 01/18/18 17:41 Dose: 250 mg Tamsulosin HCl (Flomax) 0.4 mg PO DAILY [facility] Last Admin: 01/18/18 09:56 Dose: 0.4 mg - Labs Labs: 01/18/18 07:32 01/18/18 07:32 Assessment and Plan (1) Complicated urinary tract infection Status: Acute (2) Fever Status: Acute (3) Sepsis Status: Acute
--- NOTE | 2018-01-18 22:56 | CP.PCM.PCO ---
Physician Communication Note - Physician Communication Note Physician Communication Note: Please see above
[2018-01-19 00:53] VITALS: RESP 20
[2018-01-19 08:26] LABS: BASO # 0.1 K/uL (0.0-0.2); BASO % 0.9 % (0.0-2.0); EOS # 0.5 K/uL (0.0-0.7); EOS % 7.2 % (0.0-4.0); HEMOGLOBIN 14.2 g/dL (12.0-18.0); LYMPH # 3.2 K/uL (1.0-4.3); LYMPH % 49.3 % (20.0-40.0); MEAN CELL VOLUME 84.5 fL (80.0-94.0); MEAN CORPUSCULAR HEMOGLOBIN 28.4 pg (27.0-31.0); MEAN CORPUSCULAR HGB CONC 33.7 g/dL (33.0-37.0); MEAN PLATELET VOLUME 8.1 fL (7.2-11.7); MONO # 0.6 K/uL (0.0-0.8); MONO % 8.9 % (0.0-10.0); NEUT # 2.2 K/uL (1.8-7.0); NEUT % 33.7 % (50.0-75.0); NRBC % 0.1 % (0.0-2.0); RBC 4.99 Mil/uL (4.40-5.90); RED CELL DISTRIBUTION WIDTH 12.9 % (11.5-14.5); WHITE BLOOD COUNT 6.5 K/uL (4.8-10.8)
[2018-01-19 08:47] LABS: ALT/SGPT 26 U/L (21-72); AST/SGOT 23 U/L (17-59); BLOOD UREA NITROGEN 16 mg/dL (9-20); CALCIUM 9.2 mg/dl (8.6-10.4); GFR AFRICAN-AMERICAN > 60; GFR NON-AFRICAN AMERICAN > 60
--- NOTE | 2018-01-19 09:59 | CP.PCM.PN ---
<Nicole Khan - Last Filed: 01/19/18 15:23> Subjective - Date & Time of Evaluation Date of Evaluation: 01/19/18 Time of Evaluation: 07:00 - Subjective Subjective: PGy2- Progress note for Dr. Frank Patient seen and examined at bedside and in no acute distress. Patient has no complaints. Patient says he still feels urinary hesitancy, but no pain. Patient thinks his urine is becoming less concentrated in color. Patient denies fevers, chills, chest pain, shortness of breath, or abdominal pain. Objective - Vital Signs/Intake and Output Vital Signs (last 24 hours): Temp Pulse Resp BP Pulse Ox 97.6 F 59 L 20 127/86 99 01/19/18 07:20 01/19/18 07:20 01/19/18 07:20 01/19/18 07:20 01/19/18 07:20 Intake and Output: 01/19/18 01/19/18 06:59 18:59 Intake Total 650 Balance 650 - Medications Medications: Current Medications Acetaminophen (Tylenol 325mg Tab) 650 mg PO Q6 PRN PRN Reason: Fever >100.4 F Enoxaparin Sodium (Lovenox) 40 mg SC DAILY [facility] Last Admin: 01/18/18 09:56 Dose: 40 mg Gentamicin Sulfate 80 mg/ (Sodium Chloride) 102 mls @ 102 mls/hr IVPB Q8H NATO PRN Reason: Protocol Stop: 01/23/18 20:00 Last Admin: 01/19/18 04:39 Dose: 102 mls/hr Tigecycline 50 mg/ Sodium (Chloride) 100 mls @ 100 mls/hr IVPB Q12H NATO PRN Reason: Protocol Last Admin: 01/19/18 08:03 Dose: 100 mls/hr Pneumococcal Polyvalent Vaccine (Pneumovax 23 Vaccine) 0.5 ml SC .ONCE ONE Stop: 01/19/18 10:01 Saccharomyces Boulardii (Florastor) 250 mg PO BID [facility] Last Admin: 01/18/18 17:41 Dose: 250 mg Tamsulosin HCl (Flomax) 0.4 mg PO DAILY [facility] Last Admin: 01/18/18 09:56 Dose: 0.4 mg - Labs Labs: 01/19/18 08:18 01/19/18 08:18 - Additional Findings Additional findings: - Constitutional Appears: Non-toxic, No Acute Distress - Head Exam Head Exam: ATRAUMATIC, NORMOCEPHALIC - Eye Exam Eye Exam: EOMI - ENT Exam ENT Exam: Mucous Membranes Moist - Respiratory Exam Respiratory Exam: Clear to Auscultation Bilateral, NORMAL BREATHING PATTERN - Cardiovascular Exam Cardiovascular Exam: +S1, +S2 - GI/Abdominal Exam GI & Abdominal Exam: Normal Bowel Sounds, Soft. absent: Tenderness - Exam Exam: Circumcision, Scrotal Swelling, Testicular Tenderness (right testicle) . absent: Uretheral Discharge - Extremities Exam Extremities exam: Positive for: normal inspection. Negative for: pedal edema - Back Exam Back exam: NORMAL INSPECTION. absent: CVA tenderness (L), CVA tenderness (R) - Neurological Exam Neurological exam: Alert - Psychiatric Exam Psychiatric exam: Normal Affect - Skin Skin Exam: Warm Assessment and Plan - Assessment and Plan (Free Text) Assessment: Urinary Tract infection ESBL + patient has failed outpatient PO antibiotics patient has history ESBL UTI in 10/2016 no CVA tenderness/ flank pain renal/ urinary bladder ultrasound: mild fullness versus mild hydronephrosis of the left renal collecting system 3.1 cm right sided urinary bladder diverticulum noted. 225cc postvoid residual in the urinary bladder which may represent a bladder outlet obstruction. Thickening of the urinary bladder wall which may represent an underlying cystitis. Urology, Dr. Thomas consulted, help appreciated leukocytosis 15.4 on admission, Tmax 103, HR 115, lactate 0.9 urine culture and blood culture collected patient given one dose zosyn in ER patient given one dose meropenem on 01/17, ID restricted drug Meropenem 500mg ivpb q8h stopped on 01/18. based on sensitivities to ESBL Gentamicin 80mg q8h and Tigecycline 50mg q12h started on 01/18 Florastor 250mg po BID -ID, Dr. Robles consulted, help appreciated tylenol 650mg prn fever Testicular swelling no hernia appreciated on examination testicular ultrasound: diffuse heterogeneous echotexture in the right testicle with normal flow. findings could be related to nonspecific infection/ inflammation. no evidence for mass or torsion, 4mm simple cyst in the head of the right epididymis, normal sonographic appearance of the left testicle and epididymis with normal flow Enlarged Prostate prostate measuring 4.8 x 3.9 x 4.6cm Urology, Dr. Valentine consulted, help appreciated Flomax .4mg po daily Prophylactic measure SCDs no GI prophylaxis indicated at this time ESBL contact precaution <Kevin Frank - Last Filed: 01/21/18 08:38> Objective - Vital Signs/Intake and Output Vital Signs (last 24 hours): Temp Pulse Resp BP Pulse Ox 97.9 F 62 20 124/75 99 01/21/18 07:00 01/21/18 07:00 01/21/18 07:00 01/21/18 07:00 01/21/18 07:00 Intake and Output: 01/21/18 01/21/18 06:59 18:59 Intake Total 1000 Balance 1000 - Medications Medications: Current Medications Acetaminophen (Tylenol 325mg Tab) 650 mg PO Q6 PRN PRN Reason: Fever >100.4 F Enoxaparin Sodium (Lovenox) 40 mg SC DAILY [facility] Last Admin: 01/20/18 10:19 Dose: 40 mg Gentamicin Sulfate 80 mg/ (Sodium Chloride) 102 mls @ 102 mls/hr IVPB Q8H NATO PRN Reason: Protocol Stop: 01/23/18 20:00 Last Admin: 01/21/18 03:05 Dose: 102 mls/hr Tigecycline 50 mg/ Sodium (Chloride) 100 mls @ 100 mls/hr IVPB Q12H NATO PRN Reason: Protocol Last Admin: 01/20/18 20:22 Dose: 100 mls/hr Saccharomyces Boulardii (Florastor) 250 mg PO BID [facility] Last Admin: 01/20/18 17:10 Dose: 250 mg Tamsulosin HCl (Flomax) 0.4 mg PO DAILY [facility] Last Admin: 01/20/18 10:18 Dose: 0.4 mg - Labs Labs: 01/20/18 07:20 01/20/18 07:20 Attending/Attestation - Attestation I have personally seen and examined this patient.: Yes I have fully participated in the care of the patient.: Yes I have reviewed all pertinent clinical information, including history, physical exam and plan: Yes Notes (Text): Patient was seen and examined by me. Has no complain,no fever,no abdominal pain, no urinary symptoms Continue Gentamycin and Tigecycline as per Dr Robles we will follow MRI pelvis Discussed with the resident. I agree with the documentation of the assessment and the plan of the resident
[2018-01-19] MEDS ORDERED: Pneumococcal 23-Valent Vaccine SC ONE (10:00)
[2018-01-19] MEDS: Saccharomyces Boulardi 250 mg Cap PO SCH ×2 (10:26→17:21)
[2018-01-19] MEDS: Enoxaparin 40 mg Syringe SC SCH (10:27)
--- NOTE | 2018-01-19 18:02 | CP.PCM.PN ---
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 ) Bactrim may be an option for out pt rx once a deep seated infection ruled out because of bladder residual with hydronephrosis , heterogenous testicular findings by ultrasound , and bladder thickening may need Cysto HIV serlogy sent cont tygacil/ genta for now as pt failed out pt rx ( took cipro for many weeks as per patient ) Objective - Vital Signs/Intake and Output Vital Signs (last 24 hours): Temp Pulse Resp BP Pulse Ox 97.7 F 60 20 120/76 99 01/19/18 15:45 01/19/18 15:45 01/19/18 15:45 01/19/18 15:45 01/19/18 15:45 Intake and Output: 01/19/18 01/19/18 06:59 18:59 Intake Total 650 700 Balance 650 700 - Medications Medications: Current Medications Acetaminophen (Tylenol 325mg Tab) 650 mg PO Q6 PRN PRN Reason: Fever >100.4 F Enoxaparin Sodium (Lovenox) 40 mg SC DAILY [facility] Last Admin: 01/19/18 10:27 Dose: 40 mg Gentamicin Sulfate 80 mg/ (Sodium Chloride) 102 mls @ 102 mls/hr IVPB Q8H NATO PRN Reason: Protocol Stop: 01/23/18 20:00 Last Admin: 01/19/18 12:22 Dose: 102 mls/hr Tigecycline 50 mg/ Sodium (Chloride) 100 mls @ 100 mls/hr IVPB Q12H NATO PRN Reason: Protocol Last Admin: 01/19/18 08:03 Dose: 100 mls/hr Saccharomyces Boulardii (Florastor) 250 mg PO BID [facility] Last Admin: 01/19/18 17:21 Dose: 250 mg Tamsulosin HCl (Flomax) 0.4 mg PO DAILY [facility] Last Admin: 01/19/18 10:27 Dose: 0.4 mg - Labs Labs: 01/19/18 08:18 01/19/18 08:18 - Constitutional Appears: Non-toxic, Chronically Ill - Head Exam Head Exam: NORMOCEPHALIC - Eye Exam Eye Exam: PERRL - ENT Exam ENT Exam: Mucous Membranes Dry - Neck Exam Neck Exam: absent: Lymphadenopathy - Respiratory Exam Respiratory Exam: Decreased Breath Sounds - Cardiovascular Exam Cardiovascular Exam: REGULAR RHYTHM - GI/Abdominal Exam GI & Abdominal Exam: Distended, Soft Assessment and Plan (1) Complicated urinary tract infection Status: Acute (2) Fever Status: Acute (3) Sepsis Status: Acute
[2018-01-19 21:03] LABS: SQUAMOUS EPITHIAL 2 /hpf (0-5); URINE BILIRUBIN NEGATIVE (NEGATIVE); URINE BLOOD NEGATIVE (NEGATIVE); URINE CLARITY Clear (Clear); URINE COLOR Yellow (YELLOW); URINE GLUCOSE (UA) NORMAL (Normal); URINE LEUKOCYTE ESTERASE TRACE Leu/uL (Negative); URINE PROTEIN NEGATIVE (NEGATIVE); URINE UROBILINOGEN NORMAL mg/dL (0.2-1.0)
[2018-01-20 07:31] LABS: BASO % 0.3 % (0.0-2.0); EOS # 0.5 K/uL (0.0-0.7); HEMOGLOBIN 14.7 g/dL (12.0-18.0); LYMPH # 2.9 K/uL (1.0-4.3); LYMPH % 49.8 % (20.0-40.0); MEAN CELL VOLUME 83.8 fL (80.0-94.0); MEAN CORPUSCULAR HEMOGLOBIN 28.4 pg (27.0-31.0); MEAN PLATELET VOLUME 8.1 fL (7.2-11.7); MONO # 0.5 K/uL (0.0-0.8); MONO % 8.1 % (0.0-10.0); NEUT # 1.9 K/uL (1.8-7.0); NEUT % 33.8 % (50.0-75.0); NRBC % 0.1 % (0.0-2.0); RBC 5.17 Mil/uL (4.40-5.90); RED CELL DISTRIBUTION WIDTH 12.7 % (11.5-14.5); WHITE BLOOD COUNT 5.7 K/uL (4.8-10.8)
[2018-01-20 07:50] LABS: ALBUMIN 4.1 g/dL (3.5-5.0); ALT/SGPT 31 U/L (21-72); AST/SGOT 24 U/L (17-59); BLOOD UREA NITROGEN 20 mg/dL (9-20); CALCIUM 9.2 mg/dl (8.6-10.4); GFR AFRICAN-AMERICAN > 60; GFR NON-AFRICAN AMERICAN > 60
[2018-01-20] MEDS: Saccharomyces Boulardi 250 mg Cap PO SCH ×2 (10:18→17:10)
[2018-01-20] MEDS: Enoxaparin 40 mg Syringe SC SCH (10:19)
--- NOTE | 2018-01-20 11:48 | CP.PCM.PN ---
<Nicole Khan - Last Filed: 01/20/18 14:21> Subjective - Date & Time of Evaluation Date of Evaluation: 01/20/18 Time of Evaluation: 07:00 - Subjective Subjective: PGY2- Progress Note Patient seen and examined at bedside and in no acute distress. Patient denies any fevers, headache, chest pain, shortness of breath, abdominal pain, nausea, vomiting, constipation, or diarrhea. Objective - Vital Signs/Intake and Output Vital Signs (last 24 hours): Temp Pulse Resp BP Pulse Ox 97.5 F L 58 L 20 109/72 97 01/20/18 07:00 01/20/18 07:00 01/20/18 07:00 01/20/18 07:00 01/20/18 07:00 Intake and Output: 01/20/18 01/20/18 06:59 18:59 Intake Total 700 Balance 700 - Medications Medications: Current Medications Acetaminophen (Tylenol 325mg Tab) 650 mg PO Q6 PRN PRN Reason: Fever >100.4 F Enoxaparin Sodium (Lovenox) 40 mg SC DAILY [facility] Last Admin: 01/20/18 10:19 Dose: 40 mg Gentamicin Sulfate 80 mg/ (Sodium Chloride) 102 mls @ 102 mls/hr IVPB Q8H NATO PRN Reason: Protocol Stop: 01/23/18 20:00 Last Admin: 01/20/18 11:21 Dose: 102 mls/hr Tigecycline 50 mg/ Sodium (Chloride) 100 mls @ 100 mls/hr IVPB Q12H NATO PRN Reason: Protocol Last Admin: 01/20/18 07:43 Dose: 100 mls/hr Saccharomyces Boulardii (Florastor) 250 mg PO BID [facility] Last Admin: 01/20/18 10:18 Dose: 250 mg Tamsulosin HCl (Flomax) 0.4 mg PO DAILY [facility] Last Admin: 01/20/18 10:18 Dose: 0.4 mg - Labs Labs: 01/20/18 07:20 01/20/18 07:20 - Additional Findings Additional findings: - Constitutional Appears: Non-toxic, No Acute Distress - Head Exam Head Exam: ATRAUMATIC, NORMOCEPHALIC - Eye Exam Eye Exam: EOMI - ENT Exam ENT Exam: Mucous Membranes Moist - Respiratory Exam Respiratory Exam: Clear to Auscultation Bilateral, NORMAL BREATHING PATTERN - Cardiovascular Exam Cardiovascular Exam: +S1, +S2 - GI/Abdominal Exam GI & Abdominal Exam: Normal Bowel Sounds, Soft. absent: Tenderness - Exam Exam: Circumcision, Scrotal Swelling, Testicular Tenderness (right testicle) . absent: Uretheral Discharge - Extremities Exam Extremities exam: Positive for: normal inspection. Negative for: pedal edema - Back Exam Back exam: NORMAL INSPECTION. absent: CVA tenderness (L), CVA tenderness (R) - Neurological Exam Neurological exam: Alert - Psychiatric Exam Psychiatric exam: Normal Affect - Skin Skin Exam: Warm Assessment and Plan - Assessment and Plan (Free Text) Assessment: Urinary Tract infection ESBL + patient has failed outpatient PO antibiotics patient has history ESBL UTI in 10/2016 no CVA tenderness/ flank pain renal/ urinary bladder ultrasound: mild fullness versus mild hydronephrosis of the left renal collecting system 3.1 cm right sided urinary bladder diverticulum noted. 225cc postvoid residual in the urinary bladder which may represent a bladder outlet obstruction. Thickening of the urinary bladder wall which may represent an underlying cystitis. Urology, Dr. Thomas consulted, help appreciated leukocytosis 15.4 on admission, Tmax 103, HR 115, lactate 0.9 urine culture and blood culture collected patient given one dose zosyn in ER patient given one dose meropenem on 01/17, ID restricted drug Meropenem 500mg ivpb q8h stopped on 01/18. based on sensitivities to ESBL Gentamicin 80mg q8h and Tigecycline 50mg q12h started on 01/18 Florastor 250mg po BID -ID, Dr. Robles consulted, help appreciated patient to go for MRI Monday, will need to be NPO and get an enema on Sunday 01/21 tylenol 650mg prn fever Testicular swelling no hernia appreciated on examination testicular ultrasound: diffuse heterogeneous echotexture in the right testicle with normal flow. findings could be related to nonspecific infection/ inflammation. no evidence for mass or torsion, 4mm simple cyst in the head of the right epididymis, normal sonographic appearance of the left testicle and epididymis with normal flow Enlarged Prostate prostate measuring 4.8 x 3.9 x 4.6cm Urology, Dr. Valentine consulted, help appreciated Flomax .4mg po daily Prophylactic measure SCDs no GI prophylaxis indicated at this time ESBL contact precaution <Kevin Frank - Last Filed: 01/21/18 09:05> Objective - Vital Signs/Intake and Output Vital Signs (last 24 hours): Temp Pulse Resp BP Pulse Ox 97.9 F 62 20 124/75 99 01/21/18 07:00 01/21/18 07:00 01/21/18 07:00 01/21/18 07:00 01/21/18 07:00 Intake and Output: 01/21/18 01/21/18 06:59 18:59 Intake Total 1000 Balance 1000 - Medications Medications: Current Medications Acetaminophen (Tylenol 325mg Tab) 650 mg PO Q6 PRN PRN Reason: Fever >100.4 F Enoxaparin Sodium (Lovenox) 40 mg SC DAILY [facility] Last Admin: 01/20/18 10:19 Dose: 40 mg Gentamicin Sulfate 80 mg/ (Sodium Chloride) 102 mls @ 102 mls/hr IVPB Q8H NATO PRN Reason: Protocol Stop: 01/23/18 20:00 Last Admin: 01/21/18 03:05 Dose: 102 mls/hr Tigecycline 50 mg/ Sodium (Chloride) 100 mls @ 100 mls/hr IVPB Q12H NATO PRN Reason: Protocol Last Admin: 01/20/18 20:22 Dose: 100 mls/hr Saccharomyces Boulardii (Florastor) 250 mg PO BID [facility] Last Admin: 01/20/18 17:10 Dose: 250 mg Tamsulosin HCl (Flomax) 0.4 mg PO DAILY [facility] Last Admin: 01/20/18 10:18 Dose: 0.4 mg - Labs Labs: 01/20/18 07:20 01/20/18 07:20 Attending/Attestation - Attestation I have personally seen and examined this patient.: Yes I have fully participated in the care of the patient.: Yes I have reviewed all pertinent clinical information, including history, physical exam and plan: Yes Notes (Text): Seen and examined by me.Denies abdominal pain,no complain.Discussed about MRI prep.He will have MRI pelvis on Monday morning 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 I agree with the documentation of the aseessment and the plan
[2018-01-21] MEDS: Saccharomyces Boulardi 250 mg Cap PO SCH ×2 (09:01→17:11)
[2018-01-21] MEDS: Enoxaparin 40 mg Syringe SC SCH (09:01)
--- NOTE | 2018-01-21 09:46 | CP.PCM.PN ---
<Nicole Khan - Last Filed: 01/21/18 12:00> Subjective - Date & Time of Evaluation Date of Evaluation: 01/21/18 Time of Evaluation: 07:00 - Subjective Subjective: PGY2- Progress Note for Dr. Dangelo Patient seen and examined at bedside. Patient feels fine. Patient denies any fevers, headache, chest pain, shortness of breath, abdominal pain, nausea, vomiting, constipation, or diarrhea. Objective - Vital Signs/Intake and Output Vital Signs (last 24 hours): Temp Pulse Resp BP Pulse Ox 97.9 F 62 20 124/75 99 01/21/18 07:00 01/21/18 07:00 01/21/18 07:00 01/21/18 07:00 01/21/18 07:00 Intake and Output: 01/21/18 01/21/18 06:59 18:59 Intake Total 1000 Balance 1000 - Medications Medications: Current Medications Acetaminophen (Tylenol 325mg Tab) 650 mg PO Q6 PRN PRN Reason: Fever >100.4 F Enoxaparin Sodium (Lovenox) 40 mg SC DAILY [facility] Last Admin: 01/21/18 09:01 Dose: 40 mg Gentamicin Sulfate 80 mg/ (Sodium Chloride) 102 mls @ 102 mls/hr IVPB Q8H NATO PRN Reason: Protocol Stop: 01/23/18 20:00 Last Admin: 01/21/18 03:05 Dose: 102 mls/hr Tigecycline 50 mg/ Sodium (Chloride) 100 mls @ 100 mls/hr IVPB Q12H NATO PRN Reason: Protocol Last Admin: 01/21/18 08:56 Dose: 100 mls/hr Saccharomyces Boulardii (Florastor) 250 mg PO BID [facility] Last Admin: 01/21/18 09:01 Dose: 250 mg Tamsulosin HCl (Flomax) 0.4 mg PO DAILY [facility] Last Admin: 01/21/18 09:01 Dose: 0.4 mg - Labs Labs: 01/20/18 07:20 01/20/18 07:20 - Additional Findings Additional findings: - Constitutional Appears: Non-toxic, No Acute Distress - Head Exam Head Exam: ATRAUMATIC, NORMOCEPHALIC - Eye Exam Eye Exam: EOMI - ENT Exam ENT Exam: Mucous Membranes Moist - Respiratory Exam Respiratory Exam: Clear to Auscultation Bilateral, NORMAL BREATHING PATTERN - Cardiovascular Exam Cardiovascular Exam: +S1, +S2 - GI/Abdominal Exam GI & Abdominal Exam: Normal Bowel Sounds, Soft. absent: Tenderness - Exam Exam: Circumcision, Scrotal Swelling, Testicular Tenderness (right testicle) . absent: Uretheral Discharge - Extremities Exam Extremities exam: Positive for: normal inspection. Negative for: pedal edema - Back Exam Back exam: NORMAL INSPECTION. absent: CVA tenderness (L), CVA tenderness (R) - Neurological Exam Neurological exam: Alert - Psychiatric Exam Psychiatric exam: Normal Affect - Skin Skin Exam: Warm Assessment and Plan - Assessment and Plan (Free Text) Assessment: Urinary Tract infection ESBL + patient has failed outpatient PO antibiotics patient has history ESBL UTI in 10/2016 no CVA tenderness/ flank pain renal/ urinary bladder ultrasound: mild fullness versus mild hydronephrosis of the left renal collecting system 3.1 cm right sided urinary bladder diverticulum noted. 225cc postvoid residual in the urinary bladder which may represent a bladder outlet obstruction. Thickening of the urinary bladder wall which may represent an underlying cystitis. Urology, Dr. Thomas consulted, help appreciated leukocytosis 15.4 on admission, Tmax 103, HR 115, lactate 0.9 HIV negative ID, Dr. Robles consulted, help appreciated patient given one dose zosyn in ER patient given one dose meropenem on 01/17, ID restricted drug Meropenem 500mg ivpb q8h stopped on 01/18. based on sensitivities to ESBL Gentamicin 80mg q8h and Tigecycline 50mg q12h started on 01/18 Florastor 250mg po BID tylenol 650mg prn fever patient to go for MRI of pelvis on 01/21 to rule out prostatitis, will need to be NPO and get an enema on Sunday 01/21 repeat urine culture on 01/21 Testicular swelling no hernia appreciated on examination testicular ultrasound: diffuse heterogeneous echotexture in the right testicle with normal flow. findings could be related to nonspecific infection/ inflammation. no evidence for mass or torsion, 4mm simple cyst in the head of the right epididymis, normal sonographic appearance of the left testicle and epididymis with normal flow Enlarged Prostate prostate measuring 4.8 x 3.9 x 4.6cm Urology, Dr. Valentine consulted, help appreciated Flomax .4mg po daily patient for MRI with and without contrast on 01/22, will need to be NPO and receive enema prior Prophylactic measure SCDs Lovenox 40mg sc daily no GI prophylaxis indicated at this time ESBL contact precaution <Nasra Dangelo V - Last Filed: 01/21/18 15:07> Objective - Vital Signs/Intake and Output Vital Signs (last 24 hours): Temp Pulse Resp BP Pulse Ox 97.9 F 62 20 124/75 99 01/21/18 07:00 01/21/18 07:00 01/21/18 07:00 01/21/18 07:00 01/21/18 07:00 Intake and Output: 01/21/18 01/21/18 06:59 18:59 Intake Total 1000 580 Balance 1000 580 - Medications Medications: Current Medications Acetaminophen (Tylenol 325mg Tab) 650 mg PO Q6 PRN PRN Reason: Fever >100.4 F Enoxaparin Sodium (Lovenox) 40 mg SC DAILY [facility] Last Admin: 01/21/18 09:01 Dose: 40 mg Gentamicin Sulfate 80 mg/ (Sodium Chloride) 102 mls @ 102 mls/hr IVPB Q8H NATO PRN Reason: Protocol Stop: 01/23/18 20:00 Last Admin: 01/21/18 12:11 Dose: 102 mls/hr Tigecycline 50 mg/ Sodium (Chloride) 100 mls @ 100 mls/hr IVPB Q12H NATO PRN Reason: Protocol Last Admin: 01/21/18 08:56 Dose: 100 mls/hr Saccharomyces Boulardii (Florastor) 250 mg PO BID [facility] Last Admin: 01/21/18 09:01 Dose: 250 mg Tamsulosin HCl (Flomax) 0.4 mg PO DAILY [facility] Last Admin: 01/21/18 09:01 Dose: 0.4 mg - Labs Labs: 01/21/18 11:16 01/21/18 11:16 Attending/Attestation - Attestation I have personally seen and examined this patient.: Yes I have fully participated in the care of the patient.: Yes I have reviewed all pertinent clinical information, including history, physical exam and plan: Yes Notes (Text): Patient seen, examined, case discussed medical tech. Patient seen this morning in contact isolation room patient reports urinary hesitancy reports very little but notes color has improved since admission. I did speak with Dr. Sohail Valentine will come and see the patient tomorrow and explained him in regards to the fact the patient has prior history of ESBL, was previously attempted with 20 days of Cipro antibiotic as outpatient, and the concern from infectious disease for possible cystoscopy. Patient to be nothing by mouth for MRI of prostate for tomorrow. We did explain to him that he will have an enema prior to MRI. Patient is currently on IV gentamicin and IV tigecycline since Monday. We will continue to monitor renal function and liver function in light of these antibiotics. Patient denies any eye complaints or change in vision. Please note my assessment and plan is updated below. 1. Complicated Urinary Tract infection +ESBL UTI SIRS History of urethral stricture Concern for Prostatitis Assessment/Plan * Prior hx: patient has failed outpatient PO antibiotics and call placed to patient's urologist, Dr. Thomas- defers to on-call urologist if warranted, and prior hx of ESBL+ UTI. * Urology (Dr. Marcial Valentine) on consult-->help appreciated * Infectious Disease (Dr. Robles) on consult-->help appreciated * Criteria: leukocytosis 15.4 on admission, Tmax 103, HR 115, lactate 0.9 * Renal US (01/17/18): Mild fullness versus mild hydronephrosis of the left renal collecting system. 3.1 cm right-sided urinary bladder diverticulum noted. 2-5 mL postvoid residual in the urinary bladder which may represent bladder off blood obstruction. Clinical correlation. Thickening of the urinary bladder wall which may represent an underlying cystitis. * We'll order for bladder scan every shift to prevent any urinary retention * IV ABx: * Gentamicin 80mg IVPB Q8H (active since 01/18/18) * Tigecycline 50mg IVPB Q12H (Active since 01/19/18) * Blood culture (01/16/18): no growth after 4days X2 * Urine culture (01/16/18): E. Coli sensitive to Gentamicin and Tigecycline * Per ID for at least 7 days * Repeat Urine culture (01/19/18): No growth * Patient to be nothing by mouth after midnight for prostate MRI. 2. Testicular swelling * Testicular US (01/17/18): Diffuse heterogeneous echotexture in the right testicle with normal flow findings could be related to nonspecific infection\ inflammation. No evidence of for mass or torsion. 4 mm simple cyst in the head of the right epididymitis normal sonographic appearance of the left testicle and epididymitis with normal flow. * no hernia appreciated on examination * Patient to be nothing by mouth after midnight for prostate MRI. 3. Prophylactic measure * SCDs * no GI prophylaxis indicated at this time * ESBL contact precaution * Lovenox 40mg subqdaily * Contact isolation: ESBL in the past Disposition: Patient will be NPO after midnight for Pelvis MRI given concern for possible prostatitis. will come assess the patient tomorrow; I spoke with him on the phone today. ID recommends at least 7 days minimum which would end on 01/24/18.
[2018-01-21 11:23] LABS: BASO # 0.1 K/uL (0.0-0.2); EOS # 0.3 K/uL (0.0-0.7); EOS % 4.5 % (0.0-4.0); HEMOGLOBIN 14.6 g/dL (12.0-18.0); LYMPH # 3.4 K/uL (1.0-4.3); LYMPH % 53.8 % (20.0-40.0); MEAN CELL VOLUME 83.6 fL (80.0-94.0); MEAN CORPUSCULAR HEMOGLOBIN 28.6 pg (27.0-31.0); MEAN CORPUSCULAR HGB CONC 34.2 g/dL (33.0-37.0); MEAN PLATELET VOLUME 8.3 fL (7.2-11.7); MONO # 0.8 K/uL (0.0-0.8); MONO % 12.4 % (0.0-10.0); NEUT # 1.8 K/uL (1.8-7.0); NEUT % 28.3 % (50.0-75.0); NRBC % 0.1 % (0.0-2.0); RBC 5.1 Mil/uL (4.40-5.90); RED CELL DISTRIBUTION WIDTH 12.5 % (11.5-14.5); WHITE BLOOD COUNT 6.3 K/uL (4.8-10.8)
[2018-01-21 11:55] LABS: ALB/GLOB RATIO 1.1 (1.0-2.1); ALBUMIN 3.9 g/dL (3.5-5.0); ALT/SGPT 38 U/L (21-72); AST/SGOT 21 U/L (17-59); BLOOD UREA NITROGEN 21 mg/dL (9-20); CALCIUM 8.9 mg/dl (8.6-10.4); GFR AFRICAN-AMERICAN > 60; GFR NON-AFRICAN AMERICAN > 60
--- NOTE | 2018-01-21 14:05 | CP.PCM.PN ---
Subjective - Date & Time of Evaluation Date of Evaluation: 01/21/18 Time of Evaluation: 10:00 - Subjective Subjective: DOING WELL ON IV ANTIBIOTICS AWAIT EVAL CONT IV ANTIBIOTICS FOR NOW- NO PO OPTIONS Objective - Vital Signs/Intake and Output Vital Signs (last 24 hours): Temp Pulse Resp BP Pulse Ox 97.9 F 62 20 124/75 99 01/21/18 07:00 01/21/18 07:00 01/21/18 07:00 01/21/18 07:00 01/21/18 07:00 Intake and Output: 01/21/18 01/21/18 06:59 18:59 Intake Total 1000 Balance 1000 - Medications Medications: Current Medications Acetaminophen (Tylenol 325mg Tab) 650 mg PO Q6 PRN PRN Reason: Fever >100.4 F Enoxaparin Sodium (Lovenox) 40 mg SC DAILY [facility] Last Admin: 01/21/18 09:01 Dose: 40 mg Gentamicin Sulfate 80 mg/ (Sodium Chloride) 102 mls @ 102 mls/hr IVPB Q8H [facility] PRN Reason: Protocol Stop: 01/23/18 20:00 Last Admin: 01/21/18 12:11 Dose: 102 mls/hr Tigecycline 50 mg/ Sodium (Chloride) 100 mls @ 100 mls/hr IVPB Q12H [facility] PRN Reason: Protocol Last Admin: 01/21/18 08:56 Dose: 100 mls/hr Saccharomyces Boulardii (Florastor) 250 mg PO BID [facility] Last Admin: 01/21/18 09:01 Dose: 250 mg Tamsulosin HCl (Flomax) 0.4 mg PO DAILY [facility] Last Admin: 01/21/18 09:01 Dose: 0.4 mg - Labs Labs: 01/21/18 11:16 01/21/18 11:16 - Constitutional Appears: Non-toxic, Chronically Ill - Head Exam Head Exam: NORMOCEPHALIC - Eye Exam Eye Exam: PERRL - ENT Exam ENT Exam: Mucous Membranes Dry - Neck Exam Neck Exam: absent: Lymphadenopathy - Respiratory Exam Respiratory Exam: Decreased Breath Sounds - Cardiovascular Exam Cardiovascular Exam: REGULAR RHYTHM - GI/Abdominal Exam GI & Abdominal Exam: Distended, Soft - Rectal Exam Rectal Exam: Deferred - Exam Exam: NORMAL INSPECTION - Extremities Exam Extremities Exam: absent: Pedal Edema - Back Exam Back Exam: absent: CVA tenderness (L), CVA tenderness (R) Assessment and Plan (1) Complicated urinary tract infection Status: Acute (2) Fever Status: Acute (3) Sepsis Status: Acute (4) Carbapenem-resistant bacterial infection Status: Acute - Assessment and Plan (Free Text) Assessment: AWAIT EVAL AND MRI CONT IV RX FOR MIN 7 DAYS POSSIBLE PO BACTRIM UPON DISCHARGE
[2018-01-22 06:28] LABS: BASO # 0.1 K/uL (0.0-0.2); BASO % 1.2 % (0.0-2.0); EOS # 0.4 K/uL (0.0-0.7); EOS % 6.6 % (0.0-4.0); HEMOGLOBIN 13.7 g/dL (12.0-18.0); LYMPH # 3.8 K/uL (1.0-4.3); LYMPH % 56.9 % (20.0-40.0); MEAN CELL VOLUME 83.4 fL (80.0-94.0); MEAN CORPUSCULAR HEMOGLOBIN 28.3 pg (27.0-31.0); MEAN CORPUSCULAR HGB CONC 33.9 g/dL (33.0-37.0); MEAN PLATELET VOLUME 8.4 fL (7.2-11.7); MONO # 0.7 K/uL (0.0-0.8); MONO % 11.1 % (0.0-10.0); NEUT # 1.6 K/uL (1.8-7.0); NEUT % 24.2 % (50.0-75.0); NRBC % 0.1 % (0.0-2.0); RBC 4.84 Mil/uL (4.40-5.90); RED CELL DISTRIBUTION WIDTH 12.8 % (11.5-14.5); WHITE BLOOD COUNT 6.6 K/uL (4.8-10.8)
[2018-01-22 06:57] LABS: ALBUMIN 3.6 g/dL (3.5-5.0); ALT/SGPT 33 U/L (21-72); AST/SGOT 27 U/L (17-59); BLOOD UREA NITROGEN 17 mg/dL (9-20); GFR AFRICAN-AMERICAN > 60; GFR NON-AFRICAN AMERICAN > 60
[2018-01-22] MEDS: Enoxaparin 40 mg Syringe SC SCH (09:59)
[2018-01-22] MEDS: Saccharomyces Boulardi 250 mg Cap PO SCH ×2 (10:00→17:02)
[2018-01-22] MEDS ORDERED: Gadodiamide 287 mg/ml 20 ml IV ONE (11:50)
--- NOTE | 2018-01-22 11:56 | CP.PCM.PN ---
Subjective - Date & Time of Evaluation Date of Evaluation: 01/22/18 Time of Evaluation: 07:00 - Subjective Subjective: genta on hold gu eval in progress Objective - Vital Signs/Intake and Output Vital Signs (last 24 hours): Temp Pulse Resp BP Pulse Ox 98.0 F 62 20 125/79 99 01/22/18 07:00 01/22/18 07:00 01/22/18 07:00 01/22/18 07:00 01/22/18 07:00 Intake and Output: 01/22/18 01/22/18 06:59 18:59 Intake Total 1000 Balance 1000 - Medications Medications: Current Medications Acetaminophen (Tylenol 325mg Tab) 650 mg PO Q6 PRN PRN Reason: Fever >100.4 F Enoxaparin Sodium (Lovenox) 40 mg SC DAILY [facility] Last Admin: 01/22/18 09:59 Dose: 40 mg Tigecycline 50 mg/ Sodium (Chloride) 100 mls @ 100 mls/hr IVPB Q12H [facility] PRN Reason: Protocol Last Admin: 01/22/18 10:00 Dose: 100 mls/hr Saccharomyces Boulardii (Florastor) 250 mg PO BID [facility] Last Admin: 01/22/18 10:00 Dose: 250 mg Tamsulosin HCl (Flomax) 0.4 mg PO DAILY [facility] Last Admin: 01/22/18 10:00 Dose: 0.4 mg - Labs Labs: 01/22/18 06:21 01/22/18 06:21 - Constitutional Appears: Well - Head Exam Head Exam: ATRAUMATIC, NORMAL INSPECTION, NORMOCEPHALIC - Eye Exam Eye Exam: EOMI, Normal appearance, PERRL Pupil Exam: NORMAL ACCOMODATION, PERRL - ENT Exam ENT Exam: Mucous Membranes Moist, Normal Exam - Neck Exam Neck Exam: Full ROM, Normal Inspection. absent: Lymphadenopathy - Respiratory Exam Respiratory Exam: Clear to Ausculation Bilateral, NORMAL BREATHING PATTERN - Cardiovascular Exam Cardiovascular Exam: REGULAR RHYTHM, +S1, +S2. absent: Murmur - GI/Abdominal Exam GI & Abdominal Exam: Soft, Normal Bowel Sounds. absent: Tenderness - Rectal Exam Rectal Exam: NORMAL INSPECTION - Exam Exam: Circumcision, NORMAL INSPECTION - Extremities Exam Extremities Exam: Full ROM, Normal Capillary Refill, Normal Inspection. absent : Joint Swelling, Pedal Edema - Back Exam Back Exam: NORMAL INSPECTION - Neurological Exam Neurological Exam: Alert, Awake, CN II-XII Intact, Normal Gait, Oriented x3 - Psychiatric Exam Psychiatric exam: Normal Affect, Normal Mood - Skin Skin Exam: Dry, Intact, Normal Color, Warm Assessment and Plan (1) Complicated urinary tract infection Status: Acute (2) Fever Status: Acute (3) Sepsis Status: Acute (4) Carbapenem-resistant bacterial infection Status: Acute
--- NOTE | 2018-01-22 14:35 | MRI ---
EXAM: MULTIPARAMETRIC MRI OF THE PROSTATE WITHOUT AND WITH CONTRAST WITH CAD HISTORY: Prostatitis TECHNIQUE: Multiparametric MRI of the prostate gland was performed using T1 weighted large field of view images, small [id number] T2 weighted images in the axial, coronal and sagittal planes, diffusion weighted imaging with B gradient values of 1000 and 1500, and dynamic postcontrast T1 weighted imaging using a 1.5 Rody superconducting magnet. Multiple projections both prior to and following the intravenous administration of 10 cc of Dotarem from a 10 cc single-use vial were obtained. On a separate independent [employer] CAD workstation, 3-D volume rendered reformatted images were generated with physician participation and monitoring. Images are evaluated and ADC maps as well as post contrast kinetic analysis is performed. COMPARISON: None. FINDINGS: The prostate gland is normal in size. There is no evidence of periprostatic abscess or rim-enhancing lesion. Evaluation of the peripheral zone demonstrates mild signal heterogeneity in the left lateral mid gland and apex without discrete focal mass, significant restricted diffusion or suspicious enhancement. Please note that diffusion-weighted images are limited. The neurovascular bundles are intact without evidence of mass. The urinary bladder is intrinsically normal. There is, become extensive bladder wall trabeculation and diverticula compatible with an element of outlet obstruction. A roughly 2.5 center right lateral bladder diverticulum is noted. The seminal vesicles are symmetric without evidence of mass, abnormal enhancement, or hemorrhage. There is no significant pelvic lymph node enlargement. There is no ascites. The bowel loops are unremarkable , except for extensive colonic diverticulosis. No suspicious skeletal lesions are observed. IMPRESSION: Mild signal heterogeneity in the left lateral mid gland and apex without discrete focal mass, significant restricted diffusion or suspicious enhancement. Please note that diffusion-weighted imaging is technically limited. No evidence of intra or extra prostatic abscess. Bladder wall trabeculation with right-sided 2.5 cm diverticulum. PIRADS 2 = Clinically significant cancer is unlikely to be present. PROSTATE IMAGING REPORTING AND DATA SYSTEM PIRADS 1 = Clinically significant cancer is highly unlikely to be present. PIRADS 2 = Clinically significant cancer is unlikely to be present. PIRADS 3 = Clinically significant cancer is equivocal. PIRADS 4 = Clinically significant cancer is likely to be present. PIRADS 5 = Clinically significant cancer is highly likely to be present.
--- NOTE | 2018-01-22 16:45 | PCM.URO ---
Urology Progress Note - Objective Lab Studies: Reviewed (gu plans : out pt cysto and possible iou) Lab Results Last 24 Hours: Laboratory Results - last 24 hr 01/21/18 01/22/18 01/22/18 11:16 06:21 06:21 WBC 6.6 RBC 4.84 Hgb 13.7 Hct 40.4 MCV 83.4 MCH 28.3 MCHC 33.9 RDW 12.8 Plt Count 345 MPV 8.4 Neut % (Auto) 24.2 L Lymph % (Auto) 56.9 H Clayton % (Auto) 11.1 H Eos % (Auto) 6.6 H Baso % (Auto) 1.2 Neut # (Auto) 1.6 L Lymph # (Auto) 3.8 Clayton # (Auto) 0.7 Eos # (Auto) 0.4 Baso # (Auto) 0.1 Sodium 139 Potassium 4.6 Chloride 103 Carbon Dioxide 27 Anion Gap 14 BUN 17 Creatinine 0.8 Est GFR ( Amer) > 60 Est GFR (Non-Af Amer) > 60 Random Glucose 95 Calcium 9.0 Phosphorus 3.8 Magnesium 1.9 Total Bilirubin 0.7 AST 27 ALT 33 Alkaline Phosphatase 129 H Total Protein 7.1 Albumin 3.6 Globulin 3.5 Albumin/Globulin Ratio 1.0 Prostate Specific Ag 0.653 Gentamicin Trough 01/22/18 06:21 WBC RBC Hgb Hct MCV MCH MCHC RDW Plt Count MPV Neut % (Auto) Lymph % (Auto) Clayton % (Auto) Eos % (Auto) Baso % (Auto) Neut # (Auto) Lymph # (Auto) Clayton # (Auto) Eos # (Auto) Baso # (Auto) Sodium Potassium Chloride Carbon Dioxide Anion Gap BUN Creatinine Est GFR ( Amer) Est GFR (Non-Af Amer) Random Glucose Calcium Phosphorus Magnesium Total Bilirubin AST ALT Alkaline Phosphatase Total Protein Albumin Globulin Albumin/Globulin Ratio Prostate Specific Ag Gentamicin Trough 2.7 H* Intake & Output: Intake & Output 01/21/18 01/22/18 01/22/18 18:59 06:59 18:59 Intake Total 580 1000 580 Balance 580 1000 580 Intake: Intake, IV Amount 100 200 100 Right Antecubital 100 200 100 Oral 480 800 480 Other: # Voids Urine, Voided 3 2 3 # Bowel Movements 0 1 1 Vital Signs: Vital Signs - 24 hr 01/21/18 01/22/18 23:31 07:00 Temperature 97.8 F 98.0 F Pulse Rate 56 L 62 Respiratory 20 20 Rate Blood Pressure 142/92 H 125/79 O2 Sat by Pulse 99 99 Oximetry
--- NOTE | 2018-01-22 20:18 | CP.PCM.PN ---
<Tiesha Lin P - Last Filed: 01/22/18 23:28> Subjective - Date & Time of Evaluation Date of Evaluation: 01/22/18 Time of Evaluation: 12:20 - Subjective Subjective: Pt seen and evaluated at bedside. Patient states he feels much better. Complains of pain on urination and difficulty emptying bladder. Denies fever, chills, urinary frequency, hematuria, nausea, and vomiting. Bladder scan at 3: 30am showed 266cc urine in bladder. Objective - Vital Signs/Intake and Output Vital Signs (last 24 hours): Temp Pulse Resp BP Pulse Ox 97.5 F L 62 20 119/73 100 01/22/18 15:00 01/22/18 15:00 01/22/18 15:00 01/22/18 15:00 01/22/18 15:00 Intake and Output: 01/22/18 01/23/18 18:59 06:59 Intake Total 580 Balance 580 - Medications Medications: Current Medications Acetaminophen (Tylenol 325mg Tab) 650 mg PO Q6 PRN PRN Reason: Fever >100.4 F Enoxaparin Sodium (Lovenox) 40 mg SC DAILY [facility] Last Admin: 01/22/18 09:59 Dose: 40 mg Tigecycline 50 mg/ Sodium (Chloride) 100 mls @ 100 mls/hr IVPB Q12H [facility] PRN Reason: Protocol Last Admin: 01/22/18 19:53 Dose: 100 mls/hr Saccharomyces Boulardii (Florastor) 250 mg PO BID [facility] Last Admin: 01/22/18 17:02 Dose: 250 mg Tamsulosin HCl (Flomax) 0.4 mg PO DAILY [facility] Last Admin: 01/22/18 10:00 Dose: 0.4 mg - Labs Labs: 01/22/18 06:21 01/22/18 06:21 - Constitutional Appears: No Acute Distress - Head Exam Head Exam: ATRAUMATIC, NORMOCEPHALIC - Respiratory Exam Respiratory Exam: Clear to Ausculation Bilateral - Cardiovascular Exam Cardiovascular Exam: REGULAR RHYTHM, +S1, +S2. absent: Murmur - GI/Abdominal Exam GI & Abdominal Exam: Soft, Normal Bowel Sounds. absent: Tenderness Assessment and Plan - Assessment and Plan (Free Text) Assessment: 52 yo M with PMHx of urethral stricture, phymosis and ESBL UTI (2017) presenting with fever, chills, urinary frequency and foul smelling urine. Plan: Urinary Tract infection ESBL + patient has failed outpatient PO antibiotics patient has history ESBL UTI in 10/2016 no CVA tenderness/ flank pain renal/ urinary bladder ultrasound: mild fullness versus mild hydronephrosis of the left renal collecting system 3.1 cm right sided urinary bladder diverticulum noted. 225cc postvoid residual in the urinary bladder which may represent a bladder outlet obstruction. Thickening of the urinary bladder wall which may represent an underlying cystitis. Urology, Dr. Thomas consulted, help appreciated leukocytosis 15.4 on admission, Tmax 103, HR 115, lactate 0.9 HIV negative ID, Dr. Robles consulted, help appreciated patient given one dose zosyn in ER patient given one dose meropenem on 01/17, ID restricted drug Meropenem 500mg ivpb q8h stopped on 01/18. based on sensitivities to ESBL Gentamicin 80mg q8h and Tigecycline 50mg q12h started on 01/18- continue IV antibiotics for 7 days minimum, Possibly dc with PO bactrim -01/22 Gentamicin discontinued due to Gentamicin trough of 2.7. -follow up random gentamycin level Florastor 250mg po BID tylenol 650mg prn fever 01/22 MRI pelvis: Mild signal heterogeneity in L lateral mid gland and apex without discrete focal mass, significant restricted diffusion or suspicious enhancement. Please note that diffusion-weighted imaging is technically limited. No evidence of intra or extra prostatic abscess. Bladder wasll with R sided 2.5cm diverticulum. 01/21 repeat urine culture- No growth Testicular swelling no hernia appreciated on examination testicular ultrasound: diffuse heterogeneous echotexture in the right testicle with normal flow. findings could be related to nonspecific infection/ inflammation. no evidence for mass or torsion, 4mm simple cyst in the head of the right epididymis, normal sonographic appearance of the left testicle and epididymis with normal flow Enlarged Prostate prostate measuring 4.8 x 3.9 x 4.6cm Urology, Dr. Valentine consulted, help appreciated Flomax .4mg po daily 01/22 MRI pelvis: Mild signal heterogeneity in L lateral mid gland and apex without discrete focal mass, significant restricted diffusion or suspicious enhancement. Please note that diffusion-weighted imaging is technically limited. No evidence of intra or extra prostatic abscess. Bladder wasll with R sided 2.5cm diverticulum. 01/22: Dr. Edmonds recommends out patient cystoscopy and possible internal optical urethrotomy. Prophylactic measure SCDs Lovenox 40mg sc daily Florastor 250mg PO BID ESBL contact precaution <Michael Daneglobethany Florence - Last Filed: 01/23/18 07:56> Objective - Vital Signs/Intake and Output Vital Signs (last 24 hours): Temp Pulse Resp BP Pulse Ox 97.8 F 53 L 20 124/79 100 01/23/18 07:41 01/23/18 07:41 01/23/18 07:41 01/23/18 07:41 01/23/18 07:41 Intake and Output: 01/23/18 01/23/18 06:59 18:59 Intake Total 600 Balance 600 - Medications Medications: Current Medications Acetaminophen (Tylenol 325mg Tab) 650 mg PO Q6 PRN PRN Reason: Fever >100.4 F Enoxaparin Sodium (Lovenox) 40 mg SC DAILY [facility] Last Admin: 01/22/18 09:59 Dose: 40 mg Tigecycline 50 mg/ Sodium (Chloride) 100 mls @ 100 mls/hr IVPB Q12H [facility] PRN Reason: Protocol Last Admin: 01/22/18 19:53 Dose: 100 mls/hr Saccharomyces Boulardii (Florastor) 250 mg PO BID [facility] Last Admin: 01/22/18 17:02 Dose: 250 mg Tamsulosin HCl (Flomax) 0.4 mg PO DAILY [facility] Last Admin: 01/22/18 10:00 Dose: 0.4 mg - Labs Labs: 01/23/18 06:15 01/23/18 06:15 Attending/Attestation - Attestation I have personally seen and examined this patient.: Yes I have fully participated in the care of the patient.: Yes I have reviewed all pertinent clinical information, including history, physical exam and plan: Yes Notes (Text): This is a late computer entry for 01/22/2018. Patient seen and examined this morning. Patient denies acute complaints reporting that he is urinating reporting the color is improving. Patient is nothing by mouth for MRI of the prostate to see if there is any deep-seated infection associated with the prostate. Patient is currently on day 5 of IV antibiotic to cover her ESBL urinary tract infection. Gentamicin was discontinued this morning because of elevated trough. Order for a random gentamicin level tomorrow. Discussed with infectious disease is possible that the gent trough was drawn too quickly next dosing. Patient does not have any patient complaints nor evidence of renal failure. Case discussed with urology will evaluate the patient later today water gather from reading the no recommends for outpatient cystoscopy. We'll continue to monitor patient with bladder scan to prevent urinary retention. 1. Complicated Urinary Tract infection +ESBL UTI SIRS History of urethral stricture Concern for Prostatitis Assessment/Plan * Prior hx: patient has failed outpatient PO antibiotics and call placed to patient's urologist, Dr. Thomas- defers to on-call urologist if warranted, and prior hx of ESBL+ UTI. * Urology (Dr. Marcial Valentine) on consult-->help appreciated * Infectious Disease (Dr. Robles) on consult-->help appreciated * Criteria: leukocytosis 15.4 on admission, Tmax 103, HR 115, lactate 0.9 * Renal US (01/17/18): Mild fullness versus mild hydronephrosis of the left renal collecting system. 3.1 cm right-sided urinary bladder diverticulum noted. 2-5 mL postvoid residual in the urinary bladder which may represent bladder off blood obstruction. Clinical correlation. Thickening of the urinary bladder wall which may represent an underlying cystitis. * We'll order for bladder scan every shift to prevent any urinary retention * IV ABx: * Gentamicin 80mg IVPB Q8H (active since 01/18/18) discontinue secondary to elevated gentamicin trough. * Tigecycline 50mg IVPB Q12H (Active since 01/19/18) * Blood culture (01/16/18): no growth * Urine culture (01/16/18): E. Coli sensitive to Gentamicin and Tigecycline * Per ID for at least 7 days * Repeat Urine culture (01/19/18): No growth * Patient to be nothing by mouth after midnight for prostate MRI. 2. Testicular swelling * Testicular US (01/17/18): Diffuse heterogeneous echotexture in the right testicle with normal flow findings could be related to nonspecific infection\ inflammation. No evidence of for mass or torsion. 4 mm simple cyst in the head of the right epididymitis normal sonographic appearance of the left testicle and epididymitis with normal flow. * no hernia appreciated on examination * Patient to be nothing by mouth after midnight for prostate MRI for today. 3. Prophylactic measure * SCDs * no GI prophylaxis indicated at this time * ESBL contact precaution * Lovenox 40mg subqdaily * Contact isolation: ESBL in the past Disposition: Patient will be NPO after midnight for Pelvis MRI given concern for possible prostatitis today. on case help appreciated; continue with IV antibiotics patient will need at least through January 24.
[2018-01-23 06:38] LABS: BASO # 0.1 K/uL (0.0-0.2); EOS # 0.4 K/uL (0.0-0.7); EOS % 7.3 % (0.0-4.0); HEMOGLOBIN 14.3 g/dL (12.0-18.0); LYMPH # 3.2 K/uL (1.0-4.3); LYMPH % 59.9 % (20.0-40.0); MEAN CELL VOLUME 84.3 fL (80.0-94.0); MEAN CORPUSCULAR HEMOGLOBIN 28.6 pg (27.0-31.0); MEAN CORPUSCULAR HGB CONC 33.9 g/dL (33.0-37.0); MEAN PLATELET VOLUME 8.8 fL (7.2-11.7); MONO # 0.6 K/uL (0.0-0.8); MONO % 10.6 % (0.0-10.0); NEUT # 1.1 K/uL (1.8-7.0); NEUT % 21.2 % (50.0-75.0); NRBC % 0.1 % (0.0-2.0); RED CELL DISTRIBUTION WIDTH 12.8 % (11.5-14.5); WHITE BLOOD COUNT 5.3 K/uL (4.8-10.8)
[2018-01-23 06:46] LABS: ALBUMIN 3.6 g/dL (3.5-5.0); ALT/SGPT 29 U/L (21-72); AST/SGOT 21 U/L (17-59); BLOOD UREA NITROGEN 19 mg/dL (9-20); CALCIUM 8.9 mg/dl (8.6-10.4); GFR AFRICAN-AMERICAN > 60; GFR NON-AFRICAN AMERICAN > 60
--- NOTE | 2018-01-23 07:38 | CP.PCM.PN ---
Subjective - Date & Time of Evaluation Date of Evaluation: 01/23/18 Time of Evaluation: 08:00 - Subjective Subjective: PGY-[address] Dangelo. Patient was seen and evaluated at bedside. Pt states he is feeling better today. Denies pain with urination, abdominal pain, fever, chills, chest pain, change in vision, and change in hearing. Objective - Vital Signs/Intake and Output Vital Signs (last 24 hours): Temp Pulse Resp BP Pulse Ox 97.8 F 56 L 20 129/80 100 01/22/18 23:35 01/22/18 23:35 01/22/18 23:35 01/22/18 23:35 01/22/18 23:35 Intake and Output: 01/23/18 01/23/18 06:59 18:59 Intake Total 600 Balance 600 - Medications Medications: Current Medications Acetaminophen (Tylenol 325mg Tab) 650 mg PO Q6 PRN PRN Reason: Fever >100.4 F Enoxaparin Sodium (Lovenox) 40 mg SC DAILY [facility] Last Admin: 01/22/18 09:59 Dose: 40 mg Tigecycline 50 mg/ Sodium (Chloride) 100 mls @ 100 mls/hr IVPB Q12H [facility] PRN Reason: Protocol Last Admin: 01/22/18 19:53 Dose: 100 mls/hr Saccharomyces Boulardii (Florastor) 250 mg PO BID [facility] Last Admin: 01/22/18 17:02 Dose: 250 mg Tamsulosin HCl (Flomax) 0.4 mg PO DAILY [facility] Last Admin: 01/22/18 10:00 Dose: 0.4 mg - Labs Labs: 01/23/18 06:15 01/23/18 06:15 - Constitutional Appears: Well, No Acute Distress - Head Exam Head Exam: ATRAUMATIC, NORMOCEPHALIC - Eye Exam Eye Exam: EOMI - ENT Exam ENT Exam: Mucous Membranes Moist - Respiratory Exam Respiratory Exam: Clear to Ausculation Bilateral - Cardiovascular Exam Cardiovascular Exam: REGULAR RHYTHM, +S1, +S2 - GI/Abdominal Exam GI & Abdominal Exam: Soft, Normal Bowel Sounds. absent: Tenderness - Extremities Exam Extremities Exam: absent: Pedal Edema, Tenderness - Neurological Exam Neurological Exam: Alert, Awake, Oriented x3 - Psychiatric Exam Psychiatric exam: Normal Mood - Skin Skin Exam: Dry, Warm Assessment and Plan - Assessment and Plan (Free Text) Assessment: 52 yo M with PMHx of urethral stricture, phymosis and ESBL UTI (2017) presenting with fever, chills, urinary frequency and foul smelling urine. Plan: Plan: Urinary Tract infection Hx of ESBL + patient has failed outpatient PO antibiotics patient has history ESBL UTI in 10/2016 no CVA tenderness/ flank pain renal/ urinary bladder ultrasound: mild fullness versus mild hydronephrosis of the left renal collecting system 3.1 cm right sided urinary bladder diverticulum noted. 225cc postvoid residual in the urinary bladder which may represent a bladder outlet obstruction. Thickening of the urinary bladder wall which may represent an underlying cystitis. Urology, Dr. Thomas consulted, help appreciated leukocytosis 15.4 on admission, Tmax 103, HR 115, lactate 0.9 HIV negative ID, Dr. Robles consulted, help appreciated patient given one dose zosyn in ER patient given one dose meropenem on 01/17, ID restricted drug Meropenem 500mg ivpb q8h stopped on 01/18. based on sensitivities to ESBL Gentamicin 80mg q8h and Tigecycline 50mg q12h started on 01/18- continue IV antibiotics for 7 days minimum, Possibly dc with PO bactrim Florastor 250mg po BID tylenol 650mg prn fever 01/22 MRI pelvis: Mild signal heterogeneity in L lateral mid gland and apex without discrete focal mass, significant restricted diffusion or suspicious enhancement. Please note that diffusion-weighted imaging is technically limited. No evidence of intra or extra prostatic abscess. Bladder wall with R sided 2.5cm diverticulum. 01/21 repeat urine culture- Final, No growth 01/22 Gentamicin discontinued due to Gentamicin trough of 2.7. -01/23 random gentamycin level: <0.6, wnl -Dr. Robles recs: restart gentamicin and draw gentamicin trough 30 min prior to 2nd dose. Pt may be DC on PO Bactrim with f/u culture following completion of antibiotics. -F/u gentamicin trough Testicular swelling no hernia appreciated on examination testicular ultrasound: diffuse heterogeneous echotexture in the right testicle with normal flow. findings could be related to nonspecific infection/ inflammation. no evidence for mass or torsion, 4mm simple cyst in the head of the right epididymis, normal sonographic appearance of the left testicle and epididymis with normal flow Enlarged Prostate prostate measuring 4.8 x 3.9 x 4.6cm Urology, Dr. Valentine consulted, help appreciated Flomax .4mg po daily 01/22 MRI pelvis: Mild signal heterogeneity in L lateral mid gland and apex without discrete focal mass, significant restricted diffusion or suspicious enhancement. Please note that diffusion-weighted imaging is technically limited. No evidence of intra or extra prostatic abscess. Bladder wasll with R sided 2.5cm diverticulum. 01/22: Dr. Edmonds recommends out patient cystoscopy and possible internal optical urethrotomy. Prophylactic measure SCDs Lovenox 40mg sc daily Florastor 250mg PO BID ESBL contact precaution
[2018-01-23] MEDS: Enoxaparin 40 mg Syringe SC SCH (09:57)
[2018-01-23] MEDS: Saccharomyces Boulardi 250 mg Cap PO SCH ×2 (09:57→17:03)
--- NOTE | 2018-01-23 16:03 | PCM.URO ---
Urology Progress Note - Objective Lab Studies: Reviewed (out pt management) Lab Results Last 24 Hours: Laboratory Results - last 24 hr 01/23/18 01/23/18 01/23/18 06:15 06:15 06:15 WBC 5.3 RBC 5.00 Hgb 14.3 Hct 42.1 MCV 84.3 MCH 28.6 MCHC 33.9 RDW 12.8 Plt Count 334 MPV 8.8 Neut % (Auto) 21.2 L Lymph % (Auto) 59.9 H Curry % (Auto) 10.6 H Eos % (Auto) 7.3 H Baso % (Auto) 1.0 Neut # (Auto) 1.1 L Lymph # (Auto) 3.2 Curry # (Auto) 0.6 Eos # (Auto) 0.4 Baso # (Auto) 0.1 Sodium 140 Potassium 4.3 Chloride 102 Carbon Dioxide 27 Anion Gap 15 BUN 19 Creatinine 0.8 Est GFR ( Amer) > 60 Est GFR (Non-Af Amer) > 60 Random Glucose 95 Calcium 8.9 Total Bilirubin 0.5 AST 21 ALT 29 Alkaline Phosphatase 142 H Total Protein 7.1 Albumin 3.6 Globulin 3.5 Albumin/Globulin Ratio 1.0 Random Gentamicin < 0.6 Intake & Output: Intake & Output 01/22/18 01/23/18 01/23/18 18:59 06:59 18:59 Intake Total 580 600 Balance 580 600 Intake: Intake, IV Amount 100 100 Right Antecubital 100 100 Oral 480 500 Other: # Voids Urine, Voided 3 1 # Bowel Movements 1 0 Vital Signs: Vital Signs - 24 hr 01/22/18 01/23/18 23:35 07:41 Temperature 97.8 F 97.8 F Pulse Rate 56 L 53 L Respiratory 20 20 Rate Blood Pressure 129/80 124/79 O2 Sat by Pulse 100 100 Oximetry
--- NOTE | 2018-01-24 08:57 | CP.PCM.DIS ---
Provider - Provider Date of Admission: 01/16/18 16:18 Attending physician: Nasra Dangelo DO Time Spent in preparation of Discharge (in minutes): 60 Hospital Course - Lab Results Lab Results: Micro Results 01/21/18 18:22 Urine Urine Culture - Final No Growth (<1,000 CFU/ML) 01/16/18 14:30 Blood Blood Culture - Final NO GROWTH AFTER 5 DAYS 01/16/18 14:30 Blood Gram Stain - Final TEST NOT PERFORMED 01/16/18 14:55 Blood Blood Culture - Final NO GROWTH AFTER 5 DAYS 01/16/18 14:55 Blood Gram Stain - Final TEST NOT PERFORMED 01/19/18 18:30 Urine Urine Culture - Final No Growth (<1,000 CFU/ML) 01/16/18 15:49 Urine Urine Culture - Final Escherichia Coli Most Recent Lab Values WBC 5.3 K/uL (4.8-10.8) 01/23/18 06:15 RBC 5.00 Mil/uL (4.40-5.90) 01/23/18 06:15 Hgb 14.3 g/dL (12.0-18.0) 01/23/18 06:15 Hct 42.1 % (35.0-51.0) 01/23/18 06:15 MCV 84.3 fL (80.0-94.0) 01/23/18 06:15 MCH 28.6 pg (27.0-31.0) 01/23/18 06:15 MCHC 33.9 g/dL (33.0-37.0) 01/23/18 06:15 RDW 12.8 % (11.5-14.5) 01/23/18 06:15 Plt Count 334 K/uL (130-400) 01/23/18 06:15 MPV 8.8 fL (7.2-11.7) 01/23/18 06:15 Neut % (Auto) 21.2 % (50.0-75.0) L 01/23/18 06:15 Lymph % (Auto) 59.9 % (20.0-40.0) H 01/23/18 06:15 Collier % (Auto) 10.6 % (0.0-10.0) H 01/23/18 06:15 Eos % (Auto) 7.3 % (0.0-4.0) H 01/23/18 06:15 Baso % (Auto) 1.0 % (0.0-2.0) 01/23/18 06:15 Neut # (Auto) 1.1 K/uL (1.8-7.0) L 01/23/18 06:15 Lymph # (Auto) 3.2 K/uL (1.0-4.3) 01/23/18 06:15 Collier # (Auto) 0.6 K/uL (0.0-0.8) 01/23/18 06:15 Eos # (Auto) 0.4 K/uL (0.0-0.7) 01/23/18 06:15 Baso # (Auto) 0.1 K/uL (0.0-0.2) 01/23/18 06:15 Neutrophils % (Manual) 83 % (50-75) H 01/16/18 14:48 Lymphocytes % (Manual) 8 % (20-40) L 01/16/18 14:48 Monocytes % (Manual) 7 % (0-10) 01/16/18 14:48 Eosinophils % (Manual) 2 % (0-4) 01/16/18 14:48 Platelet Estimate Normal (NORMAL) 01/16/18 14:48 pO2 33 mm/Hg (30-55) 01/16/18 14:57 VBG pH 7.44 (7.32-7.43) H 01/16/18 14:57 VBG pCO2 37 mmHg (40-60) L 01/16/18 14:57 VBG HCO3 24.9 mmol/L 01/16/18 14:57 VBG Total CO2 26.2 mmol/L (22-28) 01/16/18 14:57 VBG O2 Sat (Calc) 74.2 % (40-65) H 01/16/18 14:57 VBG Base Excess 1.1 mmol/L (0.0-2.0) 01/16/18 14:57 VBG Potassium 4.0 mmol/L (3.6-5.2) 01/16/18 14:57 Sodium 136.0 mmol/l (132-148) 01/16/18 14:57 Chloride 101.0 mmol/L (98-107) 01/16/18 14:57 Glucose 100 mg/dl (75-110) 01/16/18 14:57 Lactate 0.9 mmol/L (0.7-2.1) 01/16/18 14:57 Sodium 140 mmol/L (132-148) 01/23/18 06:15 Potassium 4.3 mmol/L (3.6-5.2) 01/23/18 06:15 Chloride 102 mmol/L (98-107) 01/23/18 06:15 Carbon Dioxide 27 mmol/L (22-30) 01/23/18 06:15 Anion Gap 15 (10-20) 01/23/18 06:15 BUN 19 mg/dL (9-20) 01/23/18 06:15 Creatinine 0.8 mg/dL (0.8-1.5) 01/23/18 06:15 Est GFR ( Amer) > 60 01/23/18 06:15 Est GFR (Non-Af Amer) > 60 01/23/18 06:15 Random Glucose 95 mg/dL (75-110) 01/23/18 06:15 Lactic Acid 0.8 mmol/L (0.7-2.1) 01/16/18 20:39 Calcium 8.9 mg/dl (8.6-10.4) 01/23/18 06:15 Phosphorus 3.8 mg/dL (2.5-4.5) 01/22/18 06:21 Magnesium 1.9 mg/dL (1.6-2.3) 01/22/18 06:21 Total Bilirubin 0.5 mg/dL (0.2-1.3) 01/23/18 06:15 AST 21 U/L (17-59) 01/23/18 06:15 ALT 29 U/L (21-72) 01/23/18 06:15 Alkaline Phosphatase 142 U/L (38-126) H 01/23/18 06:15 Total Protein 7.1 g/dL (6.3-8.3) 01/23/18 06:15 Albumin 3.6 g/dL (3.5-5.0) 01/23/18 06:15 Globulin 3.5 gm/dL (2.2-3.9) 01/23/18 06:15 Albumin/Globulin Ratio 1.0 (1.0-2.1) 01/23/18 06:15 Alpha Fetoprotein 2.6 ng/mL (1.6-4.5) 01/20/18 07:20 Prostate Specific Ag 0.653 ng/mL (0.00-4.0) 01/21/18 11:16 Venous Blood Potassium 4.0 mmol/L (3.6-5.2) 01/16/18 14:57 Urine Color Yellow (YELLOW) 01/19/18 18:30 Urine Clarity Clear (Clear) 01/19/18 18:30 Urine pH 5.0 (5.0-8.0) 01/19/18 18:30 Ur Specific [place] 1.015 (1.003-1.030) 01/19/18 18:30 Urine Protein Negative mg/dL (NEGATIVE) 01/19/18 18:30 Urine Glucose (UA) Normal mg/dL (Normal) 01/19/18 18:30 Urine Ketones Negative mg/dL (NEGATIVE) 01/19/18 18:30 Urine Blood Negative (NEGATIVE) 01/19/18 18:30 Urine Nitrate Negative (NEGATIVE) 01/19/18 18:30 Urine Bilirubin Negative (NEGATIVE) 01/19/18 18:30 Urine Urobilinogen Normal mg/dL (0.2-1.0) 01/19/18 18:30 Ur Leukocyte Esterase Trace Juan Manuel/uL (Negative) 01/19/18 18:30 Urine WBC (Auto) 12 /hpf (0-5) H 01/19/18 18:30 Urine RBC (Auto) < 1 /hpf (0-3) 01/19/18 18:30 Ur Squamous Epith Cells 2 /hpf (0-5) 01/19/18 18:30 Urine Bacteria Occ (<OCC) H 01/16/18 15:49 Gentamicin Trough 0.6 ug/mL (0.0-0.9) 01/24/18 05:08 Random Gentamicin < 0.6 ug/mL 01/23/18 06:15 HIV 1&2 Antibody Screen Negative (NEGATIVE) 01/20/18 07:20 AFP L3 Percent 43.1 % (0.5-9.9) H 01/20/18 07:20 - Hospital Course Hospital Course: Patient is a 52 year old male with past medical history of urethral stricture, phimosis, and ESBL UTI in 10/2016 who presents to the ED with complaint of fever , shaking chills, dysuria, and "sour" smelling urine. Patient states he has been seeing urologist Dr. Thomas as outpatient and has been treated with ciprofloxacin on and off for the past 20 days. Patient states he last saw Dr. Thomas today and was instructed to go to the hospital due to his shaking chills. Patient admits to right testicular pain that is worse with positional changes. He reports chronic urinary frequency due to his stricture and urinate every 5-10 minutes. Patient denies abdominal pain, back pain, flank pain, nausea, vomiting. Patient came to the ED feeling sick and having difficulty urinating. Bladder US showed a mild fullness vs. mild hydronephrosis of the left renal collecting system, a 3.1cm right sided urinary bladder diverticulum, and thickening of the urinary bladder with clinical correlation consistent with cystitis. Testicular US showed 4mm simple cyst in the head of the right epididymis, and diffuse heterogenous echotexture in the right testicle with normal flow. Pelvis MRI was negative for prostitis. Patient was started on empiric abx, and switched to Meropenem, then switched to gentamicin once cultures came back for E. Coli. However, the gentamicin trough was high and gentamicin discontinued until back down within normal levels, and then restarted. Per ID's recommendation, Urology was consulted and recommends outpatient cystoscopy and possible IOU. Patient was kept in the hospital to continue IV abx until possible to switch to PO and showed no clinical signs of worsening infection. Patient is stable for discharge home as per Dr. Dangelo. Patient did not have any home medications coming into the visit. Patient should take the new medications below as prescribed: Tamsulosin 0.4 mg by mouth daily Bactrim 800mg by mouth twice a day Bacid 1 tab by mouth daily Patient should make an appointment with Dr. Valentine for follow up within the next week. Patient should return to ED immediately if symptoms return of worsen. Instructions discussed with patient who understood and agreed. This is a summary of the hospital course. Please refer to the EMR for more details. - Date & Time of H&P Date of H&P: 01/24/18 Time of H&P: 08:57 Discharge Exam - Head Exam Head Exam: ATRAUMATIC, NORMOCEPHALIC - Eye Exam Eye Exam: EOMI, Normal appearance, PERRL - ENT Exam ENT Exam: Mucous Membranes Moist, Normal Exam - Respiratory Exam Respiratory Exam: Clear to PA & Lateral, NORMAL BREATHING PATTERN, UNREMARKABLE - Cardiovascular Exam Cardiovascular Exam: REGULAR RHYTHM, +S1, +S2. absent: Systolic Murmur - GI/Abdominal Exam GI & Abdominal Exam: Normal Bowel Sounds, Soft. absent: Tenderness - Exam Additional comments: no suprapubic tenderness. no CVA tenderness - Extremities Exam Extremities exam: full ROM, normal capillary refill, pedal pulses present - Neurological Exam Neurological exam: Alert, CN II-XII Intact, Normal Gait, Oriented x3, Reflexes Normal - Psychiatric Exam Psychiatric exam: Normal Affect, Normal Mood - Skin Skin Exam: Dry, Intact, Normal Color, Warm Discharge Plan - Discharge Medications Prescriptions: Lactobacillus Acidophilus [Bacid Acidophilus] 1 cap PO DAILY #30 cap Sulfamethoxazole/Trimethoprim [Bactrim DS 800 mg-160 mg] 1 tab PO BID #30 tab Tamsulosin [Flomax] 0.4 mg PO DAILY #30 cap - Follow Up Plan Condition: GUARDED Disposition: HOME/ ROUTINE Instructions: Smoking: Not Just Harmful to Your Lungs and Heart, Dysuria, Adult (DC), Quitting Smoking, Sulfamethoxazole and Trimethoprim, Tamsulosin, Urinary Tract Infection in Women (DC), Urinary Tract Infection in Men (DC), Sepsis (DC), Dysuria (GEN), Sepsis (GEN) Additional Instructions: Patient is stable for discharge home as per Dr. Dangelo. Patient did not have any home medications coming into the visit. Patient should take the new medications below as prescribed: Tamsulosin 0.4 mg by mouth daily Bactrim 800mg by mouth twice a day Bacid 1 tab by mouth daily Patient should make an appointment with Dr. Valentine for follow up within the next week. Patient should return to ED immediately if symptoms return of worsen. Instructions discussed with patient who understood and agreed. Referrals: Giles Robles MD [Staff Provider] - Sohail Valentine MD [Staff Provider] -
[2018-01-24] MEDS: Saccharomyces Boulardi 250 mg Cap PO SCH (09:28)
[2018-01-24] MEDS: Enoxaparin 40 mg Syringe SC SCH (09:29)
[2018-01-24 16:14] VITALS: BP 121/80; PULSE 65; TEMP 98; O2SAT 100
== END 2018-01-24 16:50 | disposition home or self-care (01) | DRG 689 ==
LOC: C.ER 12:53 → C.9E 16:18 → C.3T 22:22 → C.5S 01-18 20:34
PROVIDERS: ADMIT Hospitalist; ATTEND Hospitalist
DX: N30.90 Cystitis, unspecified without hematuria (principal); A41.9 Sepsis, unspecified organism; N13.30 Unspecified hydronephrosis; R65.10 Systemic inflammatory response syndrome (SIRS) of non-infectious origin without acute organ dysfunction; N32.3 Diverticulum of bladder; N40.0 Benign prostatic hyperplasia without lower urinary tract symptoms; B96.20 Unspecified Escherichia coli [E. coli] as the cause of diseases classified elsewhere; Z16.12 Extended spectrum beta lactamase (ESBL) resistance; N39.0 Urinary tract infection, site not specified; F17.210 Nicotine dependence, cigarettes, uncomplicated; H93.19 Tinnitus, unspecified ear; H91.90 Unspecified hearing loss, unspecified ear; Z87.440 Personal history of urinary (tract) infections